=== PATIENT | female | born 1930 | race Caucasian/White ===

== ENCOUNTER 2016-09-11 09:43 | Inpatient (IN) ==
[2016-09-11 10:48] LABS: URINE MICRO REVIEW NEEDED? NO; URINE SOURCE CLEAN CATCH
[2016-09-11 10:52] LABS: BASO% 0.1 % (0.0-0.8); EOS# 0.06 X1000 (0.0-0.7); EOS% 0.4 % (0.0-10.0); HEMATOCRIT 32.4 % (37.0-47.0); IMM GRAN# 0.03 X1000 (0.0-0.04); IMM GRAN% 0.2 % (0.0-0.5); LYMPH# 0.47 X1000 (1.2-3.4); LYMPH% 3.2 % (20.5-51.1); MANUAL DIFF NEEDED? NO; MCH 29.2 PG (27-31); MCHC 30.9 g/dL (33-37); MCV 94.5 FL (81-99); MONO# 0.65 X1000 (0.11-0.59); MONO% 4.5 % (1.7-9.3); MPV 9.9 FL (7.4-10.4); NEUT% 91.6 % (42.2-75.2); PLT 306 X1000 (130-400); RBC 3.43 XMIL (4.2-5.4)
[2016-09-11 10:55] LABS: BILIRUBIN URINE NEGATIVE (NEGATIVE); BLOOD URINE MODERATE (NEGATIVE); COLOR YELLOW; GLUCOSE URINE NEGATIVE (NEGATIVE); LEUKOCYTES URINE SMALL (NEGATIVE); NITRITE URINE NEGATIVE (NEGATIVE); PH URINE 6.5; PROTEIN URINE TRACE mg/dL (NEGATIVE); SP GRAVITY URINE 1.011; TURBIDITY URINE CLEAR (CLEAR); UROBILINOGEN URINE NORMAL (NORMAL)
[2016-09-11 10:56] LABS: UR EPITHELIAL CELLS <10 /HPF (<10); URINE BACTERIA NEGATIVE /HPF; URINE CULTURE NEEDED? YES; URINE RBC TNTC /HPF (<10)
[2016-09-11 11:04] LABS: ACETAMINOPHEN < 1.2 ug/mL (10-30)
[2016-09-11 11:05] LABS: ALBUMIN 3.2 g/dL (3.5-5.0); CALCIUM 8.7 mg/dL (8.8-10.2); MAGNESIUM 1.8 mg/dL (1.5-2.7); POTASSIUM 3.8 mmol/L (3.5-5.1); TOTAL BILIRUBIN 0.38 mg/dL (0.20-1.00); TOTAL PROTEIN 6.9 g/dL (6.3-8.3)
[2016-09-11 11:22] LABS: FREE T4 1.54 ng/dL (0.93-1.70)
[2016-09-11] MEDS ORDERED: ROCEPHIN 1 GM/NS 1 GM/50 ML IVPB IV ONE (11:46)
[2016-09-11 12:39] LABS: UR AMPHETAMINES QUAL NONE DETECTED (NONE DETECT); UR BARBITUATES QUAL NONE DETECTED (NONE DETECT); UR BENZODIAZEPIN QUAL NONE DETECTED (NONE DETECT); UR CANNABINOIDS QUAL NONE DETECTED (NONE DETECT); UR COCAINE QUAL NONE DETECTED (NONE DETECT); UR METHADONE QUAL NONE DETECTED (NONE DETECT); UR OPIATES QUAL NONE DETECTED (NONE DETECT); UR OXYCODONE QUAL NONE DETECTED (NONE DETECT); UR PCP QUAL NONE DETECTED (NONE DETECT)
--- NOTE | 2016-09-11 13:49 | PROVIDER DOCUMENTATION ---
This chart was entered by Jennifer Lee Scribe, acting as scribe for Orlando León MD. HPI-Psychological Disorder - General Chief Complaint: Psych Stated Complaint: NEED EVAL Time Seen by Provider: 09/11/16 10:00 Source: patient Allergies/Adverse Reactions: Patient Allergies Allergy/AdvReac Type Severity Reaction Status Date / Time clindamycin Allergy Unknown Unknown Verified 09/11/16 10:11 epinephrine Allergy Unknown Verified 09/11/16 10:11 fentanyl Allergy Unknown Verified 09/11/16 10:11 levofloxacin [From Levaquin] Allergy Unknown Verified 09/11/16 10:11 Sulfa (Sulfonamide Allergy Unknown Verified 09/11/16 10:11 Antibiotics) tetanus immune globulin Allergy Unknown Verified 09/11/16 10:11 Home Medications: Home Medication List Medication Instructions Recorded Confirmed Last Taken Type Duloxetine [Cymbalta] 60 mg PO DAILY 05/05/12 09/11/16 1 Day Ago History Pantoprazole [Protonix] 40 mg PO DAILY@0700 #0 tablet 06/22/12 09/11/16 Rx Losartan/Hydrochlorothiazide 1 each PO QAM #30 tablet 08/25/16 09/11/16 1 Day Ago Rx [Hyzaar 50-12.5 Tablet] Beclomethasone Dipr 80 Mcg INH 1 puff INH RTBID 09/11/16 09/11/16 1 Day Ago History [Qvar 80 Microgm Inhaler] Diclofenac Sodium 75 mg PO BID 09/11/16 09/11/16 1 Day Ago History Guaifenesin [Mucinex] 600 mg PO BID 09/11/16 09/11/16 1 Day Ago History Levothyroxine 125 microgm PO DAILY 09/11/16 09/11/16 1 Day Ago History Tramadol [Ultram] 50 mg PO TID 09/11/16 09/11/16 1 Day Ago History - History of Present Illness-Psych Nature of Presenting Problem: Pt is 86 y/o F presents to the ED with confusion and hallucinations. Pt's daughter states Pt has been more agitated lately and has been looking for her who has been for 15 years. Pt denies SI or HI Onset/Duration: reports: unsure Timing: reports: still present Severity: reports: mild Situational problems related to:: reports: N/A Psychiatric Complaints: reports: agitated, confused, hallucinating. denies: angry, altered mental status, anxiety, depressed, frustrated, hostile, homicidal thoughts, impaired concentration, ingestion, injury, insomnia, irritability, paranoid, , rapid pulse, restlessness, suicidal ideation, tremor Substance Use: reports: none/never Previous psych related hospitalizations?: No Patient arrived by:: private car Similar Symptoms Previously?: Yes Recently seen or treated by another doctor?: No Review of Systems - Adult - REVIEW OF SYSTEMS - ADULT Constitutional: reports: no symptoms reported Eyes: reports: no symptoms reported Ears, Nose, Mouth & Throat: reports: no symptoms reported Cardiovascular: reports: no symptoms reported Respiratory: reports: no symptoms reported Gastrointestinal: reports: no symptoms reported Genitourinary: reports: no symptoms reported Musculoskeletal: reports: no symptoms reported Integumentary: reports: no symptoms reported Neurological: reports: no symptoms reported Psychiatric: reports: other (confusion and hallucinating). denies: anxiety, alcohol/drug dependence, depression, suicidal thoughts Endocrine: reports: no symptoms reported Hematologic/Lymphatic: reports: no symptoms reported Allergic/Immunologic: reports: no symptoms reported All Other Systems: Reviewed and Negative Past History - Adult - PAST MEDICAL HISTORY-ADULT Review of Records: reports: Nursing Assessment Review, Medications Reviewed, Social history reviewed & non-contributory. Major Childhood Illnesses: reports: denies history Cardiovascular: reports: CHF Respiratory: reports: denies history Gastrointestinal: reports: GERD Obstetrical/Gynecological: reports: denies history Genitourinary: reports: denies history Musculoskeletal: reports: arthritis Neurological: reports: dementia Endocrine/Immune: reports: denies history Other Conditions: reports: denies history - PRIOR SURGERIES/PROCEDURES Surgical/Procedure History: reports: cholecystectomy - IMMUNIZATION STATUS Childhood Immunizations: See Nurse Assessment Flu Vaccine: See Nurse Assessment - FAMILY HISTORY Family History: reviewed, not pertinent Physical Exam-Psych Focus - Physical Exam-Psych Initial Vital Signs Reviewed: Yes Appearance: appropriate appearance, appropriate insight, neat, no apparent distress, no memory impairment Neurological: alert, normal mood/affect, calm, nursing tech II-XII nml as tested Behavior/Eye Contact/Speech: cooperative, good eye contact, normal speech Thoughts/Hallucinations: normal thought pattern, visual hallucinations HENMT: normocephalic/atraumatic, moist mucous membranes, normal ENT inspection, TMs normal, pharynx normal Neck: non-tender, full range of motion, supple, normal inspection Respiratory: chest non-tender, lungs clear, normal breath sounds, no pleuratic chest pain, no respiratory distress, no accessory muscle use Cardiovascular: normal peripheral pulses, regular rate, rhythm, no edema, no gallop, no JVD, no murmur Abdominal Exam: normal bowel sounds, non tender, soft, no organomegaly, no pulsatile mass Lymphatic: no adenopathy Back Exam: normal inspection, no CVA tenderness, no vertebral tenderness Extremity: normal range of motion, non-tender, normal gait, normal inspection, no pedal edema, no calf tenderness, normal capillary refill Integumentary: normal color, normal turgor, warm/dry Progress - PLAN OF CARE/RESULTS Progress/Plan/Lab Results: Vital Signs - 8 hr 09/11/16 09:51 Temperature 98.2 F Pulse Rate 82 Respiratory Rate 18 Blood Pressure 102/56 O2 Sat by Pulse Oximetry 100 Laboratory Results - last 24 hr 09/11/16 09/11/16 09/11/16 10:20 10:20 10:20 WBC RBC Hgb Hct MCV MCH MCHC RDW Std Deviation Plt Count MPV Immature Gran % (Auto) Neut % (Auto) Lymph % (Auto) [place] % (Auto) Eos % (Auto) Baso % (Auto) Immature Gran # (Auto) Neut # (Auto) Lymph # (Auto) [place] # (Auto) Eos # (Auto) Baso # (Auto) Sodium 130 L Potassium 3.8 Chloride 93 L Carbon Dioxide 23 L Anion Gap 14 BUN 45 H Creatinine 2.0 H Estimated GFR/1.73 m2 24 BUN/Creatinine Ratio 23 Glucose 96 Calculated Osmolality 272 Calcium 8.7 L Magnesium 1.8 Total Bilirubin 0.38 AST 12 ALT 8 L Alkaline Phosphatase 112 H Total Protein 6.9 Albumin 3.2 L Globulin 3.7 Albumin/Globulin Ratio 0.9 Vitamin B12 664 Folate 28.8 TSH 3.67 Free T4 1.54 Urine Source Urine Color Urine Turbidity Urine pH Ur Specific [place] Urine Protein Ur Glucose (Stick) Ur Ketones (Stick) Urine Blood Urine Nitrite Urine Bilirubin Urobilinogen Dipstick Urine Leukocytes Urine WBC (Auto) Urine RBC (Auto) U Epithel Cells (Auto) Urine Bacteria (Auto) Salicylates Urine Opiates Screen Ur Oxycodone Screen Ur Methadone, Qual Acetaminophen Ur Barbiturates Screen Ur Phencyclidine Scrn Ur Amphetamines Screen U Benzodiazepines Scrn Urine Cocaine Screen U Cannabinoids Screen RPR 09/11/16 09/11/16 09/11/16 10:20 10:20 10:20 WBC 14.59 H RBC 3.43 L Hgb 10.0 L Hct 32.4 L MCV 94.5 MCH 29.2 MCHC 30.9 L RDW Std Deviation 14.4 Plt Count 306 MPV 9.9 Immature Gran % (Auto) 0.2 Neut % (Auto) 91.6 H Lymph % (Auto) 3.2 L [place] % (Auto) 4.5 Eos % (Auto) 0.4 Baso % (Auto) 0.1 Immature Gran # (Auto) 0.03 Neut # (Auto) 13.36 H Lymph # (Auto) 0.47 L [place] # (Auto) 0.65 H Eos # (Auto) 0.06 Baso # (Auto) 0.02 Sodium Potassium Chloride Carbon Dioxide Anion Gap BUN Creatinine Estimated GFR/1.73 m2 BUN/Creatinine Ratio Glucose Calculated Osmolality Calcium Magnesium Total Bilirubin AST ALT Alkaline Phosphatase Total Protein Albumin Globulin Albumin/Globulin Ratio Vitamin B12 Folate TSH Free T4 Urine Source Urine Color Urine Turbidity Urine pH Ur Specific [place] Urine Protein Ur Glucose (Stick) Ur Ketones (Stick) Urine Blood Urine Nitrite Urine Bilirubin Urobilinogen Dipstick Urine Leukocytes Urine WBC (Auto) Urine RBC (Auto) U Epithel Cells (Auto) Urine Bacteria (Auto) Salicylates < 3.00 L Urine Opiates Screen Ur Oxycodone Screen Ur Methadone, Qual Acetaminophen < 1.2 L Ur Barbiturates Screen Ur Phencyclidine Scrn Ur Amphetamines Screen U Benzodiazepines Scrn Urine Cocaine Screen U Cannabinoids Screen RPR NON-REACTIVE 09/11/16 09/11/16 10:35 11:02 WBC RBC Hgb Hct MCV MCH MCHC RDW Std Deviation Plt Count MPV Immature Gran % (Auto) Neut % (Auto) Lymph % (Auto) [place] % (Auto) Eos % (Auto) Baso % (Auto) Immature Gran # (Auto) Neut # (Auto) Lymph # (Auto) [place] # (Auto) Eos # (Auto) Baso # (Auto) Sodium Potassium Chloride Carbon Dioxide Anion Gap BUN Creatinine Estimated GFR/1.73 m2 BUN/Creatinine Ratio Glucose Calculated Osmolality Calcium Magnesium Total Bilirubin AST ALT Alkaline Phosphatase Total Protein Albumin Globulin Albumin/Globulin Ratio Vitamin B12 Folate TSH Free T4 Urine Source CLEAN CATCH Urine Color YELLOW Urine Turbidity CLEAR Urine pH 6.5 Ur Specific [place] 1.011 Urine Protein TRACE A Ur Glucose (Stick) NEGATIVE Ur Ketones (Stick) NEGATIVE Urine Blood MODERATE A Urine Nitrite NEGATIVE Urine Bilirubin NEGATIVE Urobilinogen Dipstick NORMAL Urine Leukocytes SMALL A Urine WBC (Auto) 10-20 A Urine RBC (Auto) TNTC A U Epithel Cells (Auto) <10 Urine Bacteria (Auto) NEGATIVE Salicylates Urine Opiates Screen NONE DETECTED Ur Oxycodone Screen NONE DETECTED Ur Methadone, Qual NONE DETECTED Acetaminophen Ur Barbiturates Screen NONE DETECTED Ur Phencyclidine Scrn NONE DETECTED Ur Amphetamines Screen NONE DETECTED U Benzodiazepines Scrn NONE DETECTED Urine Cocaine Screen NONE DETECTED U Cannabinoids Screen NONE DETECTED RPR Orders Category Date Time Status ACETAMINOPHEN [TDM] Stat Lab 09/11/16 10:20 Completed CBC WITH ELECTRONIC DIFF [HEME] Stat Lab 09/11/16 10:20 Completed COMPREHENSIVE METABOLIC PANEL [CHEM] Stat Lab 09/11/16 10:20 Completed FOLATE Stat Lab 09/11/16 10:20 Completed FREE T4 Stat Lab 09/11/16 10:20 Completed MAGNESIUM [CHEM] Stat Lab 09/11/16 10:20 Completed RPR [SERO] Stat Lab 09/11/16 10:20 Completed SALICYLATES [TDM] Stat Lab 09/11/16 10:20 Completed TSH Stat Lab 09/11/16 10:20 Completed UDS [URINE DRUG SCREEN] Stat Lab 09/11/16 11:02 Completed URINALYSIS W/POSS RFLX CULT-1 [URINALYSIS] Routine Lab 09/11/16 10:35 Completed URINE CULTURE [RM] Routine Lab 09/11/16 11:02 Received VITAMIN B12 Stat Lab 09/11/16 10:20 Completed CefTRIAXONE 1 GM/NS [Rocephin 1 gm/Ns] Med 09/11/16 11:46 Discontinued 1 gm in 50 ml IV NOW EKG [EKG] Stat Ther 09/11/16 10:14 Ordered Result Diagrams: 09/11/16 10:20 09/11/16 10:20 - REASSESSMENT Reassessment #1 Time Reassessed: 12:05 Status: unchanged ([facility] was called for Psych consult.) - CONSULTS/PCP/HOSPITALIST Notification Time Discussed: 13:48 Reason/Comments: Dr. Leal will admit Consult Disposition: Admit Departure - Departure Time of Disposition Decision: 11:50 DIAGNOSIS: UTI (urinary tract infection) Qualifiers: Urinary tract infection type: acute cystitis Hematuria presence: without hematuria Qualified Code(s): N30.00 - Acute cystitis without hematuria Altered mental status Qualifiers: Altered mental status type: transient alteration of awareness Qualified Code(s) : R40.4 - Transient alteration of awareness Dementia Qualifiers: Dementia type: Alzheimer's disease Alzheimer's disease onset: unspecified onset Dementia behavioral disturbance: with behavioral disturbance Qualified Code(s): G30.8 - Other Alzheimer's disease; F02.81 - Dementia in other diseases classified elsewhere with behavioral disturbance Disposition: ADMITTED INPATIENT 09 Certified Medical Emergency: Emergent Condition: Stable Referrals and Follow-Ups: Mitch Leal MD [Primary Care Provider] - - Critical Care Note This patient required my direct personal management.: No This chart was documented by the indicated scribe, (Jennifer Lee Scribe) and accurately reflects the services I performed and decisions made by me, Orlando León MD, as attested by the provider's signature.
--- NOTE | 2016-09-11 15:16 | HISTORY AND PHYSICAL ---
This is an 86-year-old, well known to me who presented to the emergency room on 09/11/2016. She is brought here really because she has had more confusion, crying out for her . Assisted living has been in contact with us several times a week. Concerned about her confusion. They have contacted the family almost every day with concerns. She has underlying dementia and she has delirium and is probably more prominent because she is at a new facility. Deny a history of fever or chills. She denies dysuria or gross hematuria. PAST MEDICAL HISTORY: She has had hypothyroidism, severe degenerative arthritis, peptic ulcer disease in the past. She has been treated various times for UTI with Levaquin and I am not sure all of these were symptomatic urinary tract infections. She was last admitted on 06/19/2012. PAST SURGICAL HISTORY: Status post cholecystectomy. ALLERGIES: No known drug allergies. FAMILY HISTORY: Noncontributory. SOCIAL HISTORY: Denies use of tobacco, alcohol or illicit drugs. MEDICATIONS: At the present time she is taking levothyroxine 125 mcg daily. Q-ROBBIE 80 mcg b.i.d. Diclofenac 75 mg b.i.d. Cymbalta 60 mg a day. Mucinex 600 mg b.i.d. Hyzaar 50/12.5 one a day. Protonix 40 mg a day. Tramadol 50 mg b.i.d. p.r.n. FAMILY HISTORY: Noncontributory. SOCIAL HISTORY: Negative for alcohol or tobacco. REVIEW OF SYSTEMS: No history of weight gain or loss. No fever or chills.HEENT: Unremarkable. Respiratory: No increased work of breathing or dyspnea. Cardiovascular: No chest pain or tachy palpitation. GI: Unremarkable. : Unremarkable. Musculoskeletal/Neurologic: No significant complaints. Endocrinologic/Hematologic: No significant history. PHYSICAL EXAMINATION: VITAL SIGNS: Temperature 98.2 degrees, pulse 87, respirations 15, blood pressure 96/46. HEENT: Pupils equal, round. LUNGS: Are clear in all lung johnson. CARDIOVASCULAR: Regular rhythm and rate without murmur or S3. ABDOMEN: Soft. SKIN: Warm and dry. Weight 136 pounds, height 5 feet 6 inches. RESPIRATORY: Lungs are clear in all lung johnson. Awake and alert, oriented x2. Pleasant pupils are equal, round, reactive to light and accommodation. Oral and nasal mucosa unremarkable. Conjunctivae pink. Sclerae clear. Tympanic membranes intact. NECK: Supple without adenopathy or thyromegaly. CVP less than 6 cm. ABDOMEN: Soft. SKIN: Is warm and dry. White count 20234, hematocrit 32, platelet count 306,000. Sodium 130, potassium 3.8, chloride 93, BUN 45, creatinine 2.0. Magnesium 1.8. Calculated osmolality 272. T4 is 1.54. TSH 3.67. Folate was 28. Vitamin B12 664. Albumin 3.2. Urinalysis, urine toxicology was completely negative. Urine too numerous to count red blood cells, 10-20 white blood cells. ASSESSMENT AND PLAN: 1. Underlying dementia, episodes of delirium. She looks comfortable at the present time. I believe we will try and stop the diclofenac. I will see if I can diminish the Cymbalta and see if that will make a difference and I will see if I can stop the Ultram. 2. Gross hematuria. I am going to treat her like hemorrhagic cystitis. She is apparently allergic to Levaquin so I will put her on Rocephin or ceftriaxone 1 g daily. 3. Hypothyroidism. Appears euthyroid. Check T4 and TSH. Continue levothyroxine 125 mcg daily. 4. Hypertension. We will watch her blood pressure. 5. Osteoarthritis. As far as I do not think right now, she is going to be able to go back to assisted living. She may need more comprehensive care. Discussed with family. We will get social service to help. cc: Mitch Leal MD
[2016-09-11] MEDS ORDERED: ZOFRAN IV PRN (15:43)
[2016-09-11] MEDS: NS 1,000 ML IV SCH (16:00)
[2016-09-11] MEDS ORDERED: ATIVAN IV PRN (17:22)
[2016-09-11] MEDS: HALDOL IV PRN (17:48)
[2016-09-12] MEDS: SYNTHROID PO SCH (06:05)
[2016-09-12] MEDS: NS 1,000 ML IV SCH ×2 (06:06→18:58)
[2016-09-12 06:08] LABS: MANUAL DIFF NEEDED? NO
[2016-09-12 06:12] LABS: BASO% 0.3 % (0.0-0.8); EOS# 0.17 X1000 (0.0-0.7); EOS% 2.2 % (0.0-10.0); HEMATOCRIT 32.2 % (37.0-47.0); HEMOGLOBIN 9.8 g/dL (12.0-16.0); LYMPH# 1.02 X1000 (1.2-3.4); MCH 28.4 PG (27-31); MCHC 30.4 g/dL (33-37); MCV 93.3 FL (81-99); MONO# 0.86 X1000 (0.11-0.59); MPV 10.2 FL (7.4-10.4); NEUT% 73.5 % (42.2-75.2); PLT 283 X1000 (130-400); RBC 3.45 XMIL (4.2-5.4)
[2016-09-12 06:49] LABS: ALBUMIN 2.9 g/dL (3.5-5.0); CALCIUM 8.4 mg/dL (8.8-10.2); MAGNESIUM 1.8 mg/dL (1.5-2.7); POTASSIUM 4.1 mmol/L (3.5-5.1); TOTAL BILIRUBIN 0.18 mg/dL (0.20-1.00)
[2016-09-12] MEDS: HYZAAR 50/12.5 MG PO SCH (08:26)
[2016-09-12] MEDS: ROCEPHIN 1 GM/NS 1 GM/50 ML IVPB IV SCH (11:51)
--- NOTE | 2016-09-12 12:56 | PROGRESS NOTE ---
DATE: 09/12/2016 SUBJECTIVE: Ms. Machuca says she is feeling great this morning. No complaints. She appears oriented times person, recognizes me, and she knows that she is in the hospital. She did have some confusion last night. OBJECTIVE: Vital signs: Temperature 98.2 degrees, pulse 103, respirations 17, blood pressure 80 to 97 over 37 to 48. Lungs: Clear in all lung johnson. Cardiovascular exam: Regular rhythm and rate without murmur or S3. Abdomen: Soft. Skin: Warm and dry. O2 saturations 97%. LAB: White count 7840, hematocrit 32, platelet count 283,000. Chemistry: Sodium 134, potassium 4.1, chloride 98, BUN 49, creatinine 2.0. Liver functions unremarkable. ASSESSMENT AND PLAN: 1. Underlying dementia, episodes delirium. She does appear to be better. I have cut out several of her medications, including the Cymbalta and her pain medicine. She appears comfortable at the present time. We did give her Haldol as needed. 2. History of hypothyroidism, appears to be euthyroid. 3. History of osteoarthritis, aware. We will see how we do in physical therapy. We will see how we do eating and then I do not know that she will be able to go back to assisted living. So, we will see what our options are. Should have her back on her losartan/hydrochlorothiazide, and I her taking Ativan as needed. We have given her ceftriaxone as her urine did have some sediment, and we will treat her for urinary tract infection. cc: Mitch Leal MD
[2016-09-13] MEDS: NS 1,000 ML IV SCH ×3 (04:12→20:31)
[2016-09-13] MEDS: SYNTHROID PO SCH (06:39)
[2016-09-13] MEDS: HYZAAR 50/12.5 MG PO SCH (08:12)
[2016-09-13] MEDS: ROCEPHIN 1 GM/NS 1 GM/50 ML IVPB IV SCH (12:16)
--- NOTE | 2016-09-13 16:43 | PROGRESS NOTE ---
DATE: 09/13/2016 SUBJECTIVE: Ms. Machuca was very sleepy. She had her breakfast. She had eaten a couple of bites and then fell asleep. Apparently given some Ativan last night. OBJECTIVE: Vital signs: Temperature 97.5 degrees, pulse 94, respirations 20, blood pressure 150/69. HEENT: Pupils are equal and round. Neck: CVP less than 6 cm. Lungs: Clear in all lung johnson. Cardiovascular: Regular rhythm and rate without murmur or S3. : Good urine output. ASSESSMENT AND PLAN: 1. Lethargy, underlying dementia. We have decreased all of her medications. I think this is from the Ativan they gave her last night. 2. History of hypothyroidism. Appears euthyroid. 3. Osteoarthritis. 4. In going over her orders, I think we need to markedly reduced from Ativan if they give it to her. Otherwise seems to be doing better. I am treating her with ceftriaxone. We will check a chest x-ray. The urine showed no growth. So, we need to decide on what we are going to do as far as discharge and placement. cc: Mitch Leal MD
[2016-09-13] MEDS: ATIVAN IV PRN (22:40)
[2016-09-14] MEDS: NS 1,000 ML IV SCH ×2 (04:38→17:15)
[2016-09-14] MEDS: SYNTHROID PO SCH (06:40)
[2016-09-14] MEDS: HYZAAR 50/12.5 MG PO SCH (08:49)
[2016-09-14] MEDS: ATIVAN IV PRN ×3 (10:52→21:27)
--- NOTE | 2016-09-14 17:07 | PROGRESS NOTE ---
DATE: 09/14/2016 SUBJECTIVE: Ms. Machuca is feeling better. She wants to go home. Blood pressure is fairly good, a little bit on the low side. Pulse 110, respirations 16, blood pressure, we have had some 80s and 90s systolic. She feels good. Apparently physical therapy came by. I am not sure if she was able to stand up or walk very far. OBJECTIVE: Lungs: Clear in all lung johnson. Cardiovascular: Regular rhythm and rate without murmur or S3. Abdomen: Soft. Skin: Warm and dry. ASSESSMENT AND PLAN: 1. She is having a little more cough. I am going to check a chest x-ray on her. We will check some more lab in the morning. CBC and CHEM. We checked thyroid, looks good. B12 and folate look good. 2. Review of her orders, she is taking Zofran p.r.n. but has not had much nausea. Fluids going at 85 mL an hour. She is on losartan/hydrochlorothiazide. The blood pressures look good, at times a little marginal and I think we ought to just go ahead and stop that. We will discuss with family what they want to do for discharge. Continue physical therapy. cc: Mitch Leal MD
--- NOTE | 2016-09-14 17:42 | Diag Imaging Result Document ---
PROCEDURE NAME: CHEST-PORTABLE - 09/14/2016 PORTABLE CHEST: COMPARISON: 08/25/2016. FINDINGS: There is stable cardiomegaly. There is stable elevation of the right hemidiaphragm. There is stable small left pleural effusion. There is no consolidation or pneumothorax identified. There is apparent skin fold artifact noted over the lateral left base. IMPRESSION: Stable exam compared to 08/25/2016. Cardiomegaly, elevated right hemidiaphragm, and small left pleural effusion. No indication of pneumonia.
[2016-09-14] MEDS: TESSALON PO PRN (20:39)
[2016-09-15] MEDS: NS 1,000 ML IV SCH ×3 (00:41→12:57)
[2016-09-15 05:43] LABS: MANUAL DIFF NEEDED? NO
[2016-09-15 05:44] LABS: BASO% 0.7 % (0.0-0.8); EOS# 0.26 X1000 (0.0-0.7); EOS% 3.6 % (0.0-10.0); HEMATOCRIT 33.6 % (37.0-47.0); HEMOGLOBIN 10.4 g/dL (12.0-16.0); LYMPH# 1.34 X1000 (1.2-3.4); LYMPH% 18.4 % (20.5-51.1); MCH 29.1 PG (27-31); MCV 94.1 FL (81-99); MONO# 0.73 X1000 (0.11-0.59); MPV 9.6 FL (7.4-10.4); NEUT% 67.3 % (42.2-75.2); PLT 342 X1000 (130-400); RBC 3.57 XMIL (4.2-5.4)
[2016-09-15 06:04] LABS: CALCIUM 8.8 mg/dL (8.8-10.2); MAGNESIUM 1.5 mg/dL (1.5-2.7); POTASSIUM 3.2 mmol/L (3.5-5.1); TOTAL BILIRUBIN 0.15 mg/dL (0.20-1.00); TOTAL PROTEIN 6.2 g/dL (6.3-8.3)
[2016-09-15] MEDS: SYNTHROID PO SCH (06:24)
--- NOTE | 2016-09-15 09:45 | PROGRESS NOTE ---
DATE: 09/15/2016 SUBJECTIVE: Ms. Machuca apparently had some trouble sleeping last night. She is sleeping well this evening. She does have some sundowning and some delirium in the evening. I am going to try her on some trazodone to help her sleep at 50 mg. We will try that tonight. Ativan seems to be helpful. PHYSICAL EXAMINATION: Vital Signs: Temperature 98 degrees, pulse 76, respirations 16, blood pressure 100/56. HEENT: The pupils were equal and round. Lungs. Are clear in all lung johnson. Cardiovascular Examination: Regular rhythm and rate without murmur or S3. Is and Os: Urine output over 4 L. LAB: Reviewed. White count 7300, hematocrit 33, platelet count 342,000. Chemistry: Sodium 140, potassium 3.2, chloride 107, bicarb 20, BUN 23, creatinine 1.5. Magnesium was 1.5. She also had a chest x-ray. She was having a little more cough yesterday. Chest x-ray was stable exam compared to 08/25/2016. Elevated right hemidiaphragm, small left pleural effusion. No indication of pneumonia. ASSESSMENT AND PLAN: 1. General arthritis, osteoarthritis. We will need to continue physical therapy. Try and get her out of bed and do some walking. 2. She has cognitive decline, mild dementia. She does have sundowning with some delirium. I am going to try a little bit of trazodone to help her sleep tonight and see if that with the Ativan is going to be helpful. 3. Nutrition is good. Oral intake is good. 4. Review of her court orders. I do not see any change. Family would like to get her to [facility]. See if we can get her into rehabilitation so we will try and pursue that. cc: Mitch Leal MD
[2016-09-15] MEDS: TESSALON PO PRN ×3 (12:56→21:54)
[2016-09-15] MEDS: POTASSIUM CHLORIDE 20% LIQUID PO SCH (12:57)
[2016-09-15] MEDS: DESYREL PO SCH (20:47)
[2016-09-15] MEDS: ATIVAN IV PRN (21:55)
[2016-09-16] MEDS: NS 1,000 ML IV SCH ×2 (03:17→22:10)
[2016-09-16] MEDS: POTASSIUM CHLORIDE 20% LIQUID PO SCH (10:18)
[2016-09-16] MEDS: SYNTHROID PO SCH (10:19)
[2016-09-16] MEDS: TESSALON PO PRN (10:31)
[2016-09-16] MEDS: TYLENOL PO PRN (10:52)
--- NOTE | 2016-09-16 11:48 | PROGRESS NOTE ---
DATE: 09/16/2016 SUBJECTIVE: Ms. Machuca was sleepy. She woke up, and was aroused easily. Appears comfortable. Thinks she had a little better night last night. We did try her on trazodone. OBJECTIVE: Vital signs: Temperature 97.6, pulse 100, respirations 18, blood pressure 126/59. Eyes: Pupils are equal, round. Lungs: Are clear in all lung johnson. Cardiovascular: Exam regular rhythm and rate without murmur or S3. Urine output 2000 mL. LAB: Reviewed from yesterday. Creatinine down to 1.5. It was 2.0 on 08/23. ASSESSMENT AND PLAN: 1. General arthritis, osteoarthritis. Pain appears to be under control. Continue physical therapy. Need to get her walking. 2. Cognitive decline, mild dementia with episodes of delirium and some sundowning. We tried trazodone, it seems to be helpful. 3. Nutrition is good. 4. Renal function. Creatinine came down from 2.0 to 1.5. We will check blood work again in the morning. Review of her orders. Trazodone 50 mg at bedtime, potassium 40 mEq daily. She is getting normal saline at 85 mL an hour. Synthroid 125 mcg a day, Tessalon Perles as needed. Note, we had checked a chest x-ray on 09/14 and it was stable exam. No sign of infiltrates. Plan is to try and get her to a [facility] and continue to work that. cc: Mitch Leal MD
[2016-09-16] MEDS ORDERED: LASIX IV ONE (15:41)
[2016-09-16] MEDS ORDERED: DUONEB (A & A) INH ONE ×2 (15:41→18:58)
--- NOTE | 2016-09-16 17:26 | Diag Imaging Result Document ---
PROCEDURE NAME: CHEST-PORTABLE - 09/16/2016 PORTABLE CHEST: COMPARISON: Compared to 09/14/2016. FINDINGS: The right hemidiaphragm is elevated. The heart is mildly prominent. There is vascular distention. No consolidation. No pleural effusions identified. IMPRESSION: Worsening pulmonary edema.
[2016-09-16] MEDS: DESYREL PO SCH (21:04)
[2016-09-16] MEDS: ATIVAN IV PRN (21:04)
[2016-09-16] MEDS: DUONEB (A & A) INH PRN (23:05)
[2016-09-17] MEDS: DESYREL PO SCH ×2 (01:00→20:19)
[2016-09-17] MEDS: DUONEB (A & A) INH PRN ×5 (03:30→23:30)
[2016-09-17] MEDS: SYNTHROID PO SCH (06:07)
[2016-09-17 07:05] LABS: CALCIUM 9.1 mg/dL (8.8-10.2)
--- NOTE | 2016-09-17 07:18 | PROGRESS NOTE ---
DATE: 09/17/2016 SUBJECTIVE: Ms. Machuca states she is comfortable. She did get some sleep last night. Easy to arouse. Appeared to be oriented to person and place this morning. OBJECTIVE: Temperature 97.8 degrees, pulse 84, respirations 10, blood pressure 140/69. Her ranges of blood pressure been between 100 to 145/56 to 76. Lungs are clear in all lung johnson anterolateral. Cardiovascular: Regular rhythm and rate without murmur or S3. Abdomen is soft. Skin is warm and dry. Good urine output. LABORATORY DATA: Lab reviewed from 09/15/2016. We did a chest x-ray yesterday. There was some worsening pulmonary edema, so, we gave her some Lasix. I will probably give her Lasix daily for a little bit so we can dry her lungs up some. Watching her renal function closely. ASSESSMENT AND PLAN: 1. General arthritis/osteoarthritis. Continue physical therapy. 2. Cognitive decline with mild dementia. Episodes of delirium at times. This seems to be better. We tried some trazodone at night. This seems to be helpful. 3. Nutrition is good. 4. Mild renal insufficiency. Probably has chronic kidney disease, stage 2. 5. Some pulmonary venous hypertension. I am going to give her some more Lasix this morning. We will check electrolytes again. I would like to see if we could get her to a [facility] tomorrow. cc: Mitch Leal MD
[2016-09-17] MEDS ORDERED: CALMOSEPTINE OINTMENT TOP PRN (07:21)
[2016-09-17] MEDS: POTASSIUM CHLORIDE 20% LIQUID PO SCH (09:13)
[2016-09-17] MEDS: TYLENOL PO PRN (13:25)
[2016-09-17] MEDS: ATIVAN IV PRN ×2 (18:26→23:14)
[2016-09-18] MEDS: HALDOL IV PRN (05:30)
[2016-09-18] MEDS: SYNTHROID PO SCH (06:13)
--- NOTE | 2016-09-18 06:24 | Diag Imaging Result Document ---
PROCEDURE NAME: CHEST-PORTABLE - 09/18/2016 SEMIUPRIGHT AP PORTABLE CHEST: COMPARISON: 09/16/2016. FINDINGS: The right hemidiaphragm is elevated. The heart is enlarged. There is mild central vascular prominence. There is a small left effusion. The overall appearance of the chest is similar to that of the prior exam. IMPRESSION: Stable chest.
[2016-09-18] MEDS ORDERED: LASIX IV ONE (09:13)
--- NOTE | 2016-09-18 09:45 | PROGRESS NOTE ---
DATE: 09/18/2016 SUBJECTIVE: Ms. Machuca is sleeping. She does not feel real good. States her breathing is better, though. OBJECTIVE: Vital Signs: Temp 98.2 degrees, afebrile, pulse 90, respirations 18, blood pressure 91/66. HEENT: Pupils are equal. CVP appears to be less than 8 cm water pressure from angle of Bharat. Her urine output is about 1400 mL. DIAGNOSTIC DATA: Review of her CBC from the 2nd is unremarkable. Chemistries from yesterday, renal function is improving. Creatinine 1.4. It was 2.0 when she presented. Her magnesium was 1.5. Chest x-ray from this morning, stable chest. Right hemidiaphragm elevated. Heart is enlarged with mild central vascular prominence. Note, I am going to get an echocardiogram. Her EKG appears to be right bundle-branch block with first-degree AV block, otherwise unremarkable. No ST-segment changes. ASSESSMENT AND PLAN: 1. General osteoarthritis and weakness. Continue physical therapy, trying to get her into a long term. 2. Cognitive decline, mild dementia with times of delirium and ing. We have started trazodone at night. This seems to be helpful. 3. Nutrition good. 4. Mild renal insufficiency. Overlying probably some chronic kidney disease stage 2. Renal function appears to be improving. 5. Pulmonary venous hypertension. I will check an echocardiogram as family has asked that Cardiology get involved, as she has been told she has congestive heart failure. 6. Review of her orders: I will give her some more Lasix today. Fluids have been turned down. I think she has an appointment as an outpatient see Dr. Jim. We will ask Dr. Juan F Daniels if he would see her today and evaluate and then lastly hypothyroidism appears to be euthyroid based on her TSH. We will check a T4 and TSH though as well. cc: Mitch Leal MD
--- NOTE | 2016-09-18 10:40 | CONSULTATION ---
DATE OF CONSULTATION: 09/18/2016 INDICATIONS: Shortness of breath and confusion. HISTORY OF PRESENT ILLNESS: Ms. Machuca is an 86-year-old white female with a history of significant dementia who presented for evaluation from an assisted living facility with acute confusion. Apparently, over the last couple of weeks or so, the patient has had worsening confusion and has actually been somewhat combative lately. She was brought in secondary to this. Presently, the patient is not able to provide any history, as she was given 4 mg of Ativan around 4-1/2 to 5 hours prior to my evaluation. The patient's daughter is present in the room. She denies any issues with orthopnea lately, no lower extremity edema. She was told that she has CHF, but I do not see any formal evaluations with stress tests or ultrasounds. PAST MEDICAL HISTORY: 1. Significant for hypothyroidism. 2. Osteoarthritis. 3. Peptic ulcer disease. 4. Frequent UTIs. 5. Significant dementia. 6. Chronic kidney disease. SOCIAL HISTORY: She apparently is a former resident of an assisted living facility. No current alcohol or tobacco. FAMILY HISTORY: Significant for hypertension. REVIEW OF SYSTEMS: A 10-system review of systems is unable to be obtained secondary to the patient's sedation from recent Haldol administration. PHYSICAL EXAMINATION: Vital Signs: On physical examination, she is afebrile. Heart rate of 90, blood pressure 91/66. General: She is in no acute distress. HEENT: Oropharynx is moist. Poor dentition. Eye examination is pink conjunctivae. White sclerae. Neck: Examination shows no obvious thyromegaly or thyroid tenderness. Cardiovascular: She is in a regular rate and rhythm. She has no obvious murmurs. There is no S3. She has no lower extremity edema. Chest: Exam sounds clear bilaterally. She has no increased work of breathing. She is not cooperative with the exam. Abdomen: Soft, nontender, nondistended. She has no obvious organomegaly. Skin: Warm and dry throughout. Neurologic/Psychiatric: Not able to be assessed secondary to the patient's profound sedation. PERTINENT DATA: Her chest x-ray shows a right hemidiaphragm that is elevated, cardiomegaly, mild central vascular prominence with a small left-sided effusion. Laboratory data shows a sodium of 142, potassium 4, BUN 18, creatinine 1.4. Yesterday her white count was 7.3 with hematocrit 33.6 and platelet count of 342,000. She had a proBNP on the that was 16,511. She has had none checked here. She apparently presented on the , and on the her creatinine was 2; today it is 2.4 ASSESSMENT: Dementia with a significant level of confusion lately, which is likely delirium superimposed on severe underlying dementia. PLAN: We will check an echocardiogram. Presently I do not have significant historical level of evidence or objective evidence to suggest that the patient has heart failure. She did have an elevated proBNP on a previous presentation to the ER, but this was in the setting of what appeared to be acute kidney insufficiency. I would continue on current management. cc: MD Mitch Zaldivar MD
[2016-09-18] MEDS: NS 1,000 ML IV SCH ×2 (11:12→18:04)
[2016-09-18] MEDS: PRINIVIL PO SCH (11:59)
[2016-09-18] MEDS: POTASSIUM CHLORIDE 20% LIQUID PO SCH (11:59)
[2016-09-18] MEDS: DUONEB (A & A) INH PRN ×2 (16:17→19:34)
[2016-09-18] MEDS: ATIVAN IV PRN (19:57)
[2016-09-18] MEDS: DESYREL PO SCH (20:00)
[2016-09-19 06:06] LABS: CALCIUM 8.8 mg/dL (8.8-10.2); MAGNESIUM 1.5 mg/dL (1.5-2.7); POTASSIUM 4.4 mmol/L (3.5-5.1)
[2016-09-19] MEDS: SYNTHROID PO SCH (06:16)
[2016-09-19] MEDS: DUONEB (A & A) INH PRN ×4 (07:48→23:11)
--- NOTE | 2016-09-19 09:49 | PROGRESS NOTE ---
DATE: 09/19/2016 SUBJECTIVE: Ms. Machuca was sleeping, resting comfortably. She was easy to arouse, but she said she is sleepy this morning. OBJECTIVE: Vital Signs: Temperature 98.2 degrees, pulse 96, respirations 15, blood pressure 130/75. HEENT: Pupils are equal, round. Lungs: The lungs are clear in all lung johnson. Cardiovascular: Regular rhythm and rate without murmur or S3. Abdomen: Soft. Skin: Warm and dry. Urine Output: 1376. LABORATORY DATA: Chemistries from this morning, sodium 141, potassium 4.4, chloride 110, BUN 20, creatinine 1.5. ASSESSMENT: 1. She still has a significant level of confusion and some delirium. The delirium is superimposed on some mild dementia. 2. Osteoarthritis. 3. General weakness and deconditioning. 4. Chronic kidney disease. Creatinine about, I think, baseline, which is about 1.4 to 1.5. 5. History of peptic ulcer disease. PLAN: Echocardiogram will be reviewed. The plan is to try and get her to rehab on Wednesday. Her electrolytes and volume status look good. Looking at orders, I do want to look at an echocardiogram. Cardiology consult, I appreciate Dr. Daniels's help. We will give her some more Lasix this morning. cc: Mitch Leal MD
[2016-09-19] MEDS: PRINIVIL PO SCH (10:41)
[2016-09-19] MEDS: LASIX IV SCH (10:41)
[2016-09-19] MEDS: POTASSIUM CHLORIDE 20% LIQUID PO SCH (10:41)
--- NOTE | 2016-09-19 16:39 | ECHO REPORT ---
ORDER DATE: 09/18/2016 INTERPRETING PHYSICIAN: Dr. Tho Vallejo ECHOCARDIOGRAPHIC MEASUREMENTS: Interventricular septum: 1.4 cm. Left ventricular posterior wall: 1.6 cm. Diastolic diameter: 3.0 cm. Left atrium: 4.4 cm. Aortic root: 3.0 cm. SUMMARY OF THE 2-DIMENSIONAL IMAGIN. There is severe mitral annular calcification with thickened and restricted movement of the mitral valve leaflets. Tricuspid valve was normal. 2. Aortic valve leaflets are calcified. Trileaflet pulmonic valve was normal. 3. Left atrial enlargement. 4. Normal left ventricular cavity size. Concentric left ventricular hypertrophy. Estimated ejection fraction of 60-65%. 5. Doppler studies revealed peak velocity across the aortic valve was 4.3 m/sec with a peak gradient of 74 mmHg, mean gradient of 44 mmHg. Aortic valve area a calculated at 0.8 square cm. There is severe aortic stenosis. 6. Peak inflow velocity across the mitral valve was 2.4, with a mean gradient of 12 mmHg. There is a restricted mitral valve leaflet motion with at least moderate mitral stenosis associated with mild mitral regurgitation. 7. There is moderate tricuspid regurgitation. Peak velocity across the tricuspid valve was 4 m/sec. Pulmonary artery systolic pressure of 74 mmHg. There is severe pulmonary arterial hypertension. 8. There is trivial pulmonary regurgitation. 9. There is no pericardial effusion or obvious intracardiac mass or thrombus seen. cc: MD Juan F Marroquin MD Allen J. Schmidt, MD
[2016-09-19] MEDS: DESYREL PO SCH (21:53)
[2016-09-19] MEDS: ATIVAN IV PRN (21:56)
[2016-09-19] MEDS: NS 1,000 ML IV SCH (21:57)
[2016-09-20] MEDS: NS 1,000 ML IV SCH ×2 (06:22→15:41)
[2016-09-20] MEDS: SYNTHROID PO SCH (06:23)
[2016-09-20] MEDS: DUONEB (A & A) INH PRN ×3 (07:34→15:49)
[2016-09-20] MEDS: PRINIVIL PO SCH (09:31)
[2016-09-20] MEDS: POTASSIUM CHLORIDE 20% LIQUID PO SCH (09:32)
[2016-09-20] MEDS ORDERED: ANTIVERT PO PRN (10:33)
[2016-09-20] MEDS ORDERED: LASIX PO ONE (12:46)
[2016-09-20] MEDS: LASIX IV SCH (15:41)
[2016-09-20] MEDS: ATIVAN IV PRN (19:59)
[2016-09-20] MEDS: DESYREL PO SCH (22:38)
[2016-09-20] MEDS: HALDOL IV PRN (22:38)
[2016-09-21] MEDS: ATIVAN IV PRN (03:55)
[2016-09-21] MEDS: SYNTHROID PO SCH (06:24)
[2016-09-21] MEDS: DUONEB (A & A) INH PRN ×4 (07:39→22:46)
--- NOTE | 2016-09-21 09:37 | PROGRESS NOTE ---
DATE: 09/21/2016 SUBJECTIVE: Ms. Machuca was sleeping, easy to arouse. She is sleepy. Denies any pain. No trouble with breathing. No shortness of breath. PHYSICAL EXAMINATION: Vital Signs: Afebrile, temperature 97.9 degrees, pulse 86, respirations 16, blood pressure 121/62. Neck: No distended neck veins. Lungs: Clear in all lung johnson anterolateral. Cardiovascular Examination: Regular rhythm and rate without murmur or S3. Abdomen: Soft. Skin: Warm and dry. Is and Os: Good urine output. LABORATORY DATA: Lab reviewed. Sodium 141, potassium 4.4, chloride 110, serum creatinine is 1.5, with a BUN of 20. ASSESSMENT AND PLAN: 1. She does have severe aortic stenosis and she may have an element of mitral stenosis as well. Blood pressure looks good. I have diuresed her a little bit. 2. Chronic kidney disease, acute on chronic. Creatinine was 2 when she presented. It is down to 1.5 and I suspect this is her baseline. 3. General weakness, deconditioning. Continue physical therapy. 4. Cognitive decline, mild dementia with some delirium which has improved. 5. Meniere's disease. She has complained of a little bit of vertigo. 6. I have reviewed her orders. Continue the trazodone 25 mg at bedtime. I am going to give her some more Lasix. She gets every morning 40 mg intravenous every morning, Synthroid 125 mcg a day, Prinivil 5 mg a day, potassium chloride 40 mEq daily. She is ready to go to rehabilitation. She will need custodial placement. cc: Mitch Leal MD
--- NOTE | 2016-09-21 09:52 | PROGRESS NOTE ---
DATE: 09/20/2016 SUBJECTIVE: Note, she was sleepy but easy to arouse. She was asking when she could go home. She did complain of some vertigo. She does have Meniere's. I told her that I would give her some Antivert. PHYSICAL EXAMINATION: Vital Signs: Temperature 97.8 degrees, pulse 80, respirations 16, blood pressure 120/62. Lungs: Clear in all lung johnson. Cardiovascular Examination: Regular rhythm and rate without murmur or S3. Abdomen: Soft. Skin: Warm and dry. DIAGNOSTIC DATA: I reviewed the echocardiogram. ASSESSMENT AND PLAN: I have being given her Lasix every morning. She has severe mitral annular calcification and thickened and restricted movement of the mitral valve leaflets. She has aortic stenosis which appears to be severe and her peak gradient is about 74 mmHg. Peak velocity across the aortic valve was 4.3 m/sec. She has a moderate tricuspid regurgitation. Pulmonary systolic pressure is 74 mmHg. The patient is breathing well. She is pretty puny. She is eating fairly well. The confusion is less. Still episodes of delirium and confusion though with underlying dementia. Continue present therapy. Looking for rehab alf. cc: Mitch Leal MD
[2016-09-21] MEDS: PRINIVIL PO SCH (10:06)
[2016-09-21] MEDS: POTASSIUM CHLORIDE 20% LIQUID PO SCH (10:06)
[2016-09-21] MEDS: LASIX IV SCH (10:06)
--- NOTE | 2016-09-21 11:30 | PROGRESS NOTE ---
DATE: 09/21/2016 SUBJECTIVE: Ms. Machuca is doing well today. She is not participating much in the history. She got a dose of Haldol last night at 10:40 and Ativan this morning at 3:55. She is fairly somnolent in the room, not participating in much of the history. OBJECTIVE: Vital signs: She is afebrile. Heart rate of 86, blood pressure 121/62. General: She is in no acute distress. Cardiovascular: She is in a regular rate and rhythm. There is a 2/6 systolic murmur, best heard at the right upper sternal border. No lower extremity edema. Chest: Her chest exam sounds clear to auscultation bilaterally. She has no increased work of breathing. Abdomen: Soft, nontender. PERTINENT DATA: Her echo shows an EF 60 to 65%. She appears to have severe aortic stenosis with a valve area calculated at 0.8 and a mean gradient of 44. She also appears to have some degree of mitral stenosis as well, possibly severe, with a mean gradient of 12 and a pulmonary pressure of 74. Laboratory data today shows a sodium of 141, potassium is 4.4, BUN is 20, creatinine is 1.5. ASSESSMENT: 1. Severe aortic stenosis with possibly severe mitral stenosis. 2. Some level of dementia. PLAN: At this point I am unclear of the patient's baseline level of cognitive function. This will have to be determined initially prior to determining any sort of possibility at potentially intervening on the aortic valve. Presently, she seems to be euvolemic as she is lying in bed without any complaints. No shortness of breath. No orthopnea. I would continue with current medications as she seems to be doing well. cc: MD Mitch Zaldivar MD
[2016-09-21] MEDS: DESYREL PO SCH (20:04)
[2016-09-22] MEDS: ATIVAN IV PRN (01:39)
[2016-09-22 05:08] VITALS: BP 110/51
[2016-09-22] MEDS: SYNTHROID PO SCH (06:07)
[2016-09-22 06:29] LABS: CALCIUM 9.1 mg/dL (8.8-10.2); MAGNESIUM 1.6 mg/dL (1.5-2.7); POTASSIUM 4.5 mmol/L (3.5-5.1)
[2016-09-22] MEDS ORDERED: LASIX PO SCH (09:45)
[2016-09-22] MEDS: POTASSIUM CHLORIDE 20% LIQUID PO SCH (09:55)
[2016-09-22] MEDS: PRINIVIL PO SCH (09:56)
--- NOTE | 2016-09-22 11:56 | DISCHARGE SUMMARY ---
ADMISSION DATE: 09/11/2016 DISCHARGE DATE: HOSPITAL COURSE: This 86-year-old was brought here because she had more confusion, crying out for her . Assisted Living did not feel like they could take care of that concern and so presented to the emergency room. The confusion improved. We did change the medications around. She does have some underlying cognitive decline with mild dementia. She does still have episodes of some delirium and especially in the evening, and it seemed to improve those steadily. She was very cooperative, and we began physical therapy. We did ask Cardiology to see her. She does have some pulmonary venous hypertension. Echocardiogram suggests severe aortic stenosis. Possibly at least [id number] mitral stenosis. Her pulmonary arterial hypertension: Normal left ventricular function. She was eating fairly well. Estimated ejection fraction left ventricle was 60% to 65%. Family requested that she go to rehab and feels she probably will end up needing to go to the [facility]. We would benefit from rehab and from more [place]. They cannot go home. They do not have the means or ability to do this. She cannot go back to assisted living. DISCHARGE MEDICATIONS: 1. Continue Tessalon Perles p.r.n. 2. Lasix 40 mg p.o. daily q.a.m. 3. Synthroid 125 mcg daily. 4. Prinivil 5 mg a day. 5. Antivert 12.5 t.i.d. p.r.n.. 6. Potassium chloride 40 mEq daily. We will cut that down to 20 mg daily and trazodone 25 mg at bedtime, breathing treatments as needed. Continue physical therapy. cc: Mitch Leal MD
[2016-09-22] MEDS: DUONEB (A & A) INH PRN (11:58)
--- NOTE | 2016-09-22 12:37 | Diag Imaging Result Document ---
PROCEDURE NAME: CHEST-PORTABLE - 09/22/2016 SINGLE FRONTAL RADIOGRAPH OF THE CHEST: COMPARISON: 09/18/2016. FINDINGS: There is suggestion of a small left effusion that appears to have increased in size during the interval. There is still mild central vascular prominence indicating mild pulmonary venous congestion. It is similar to the previous study. No other new consolidations are appreciated. Cardiac silhouette is stable. IMPRESSION: Suggestion of an increase in size of the small left effusion. Essentially stable, otherwise.
== END 2016-09-22 13:36 ==
LOC: ED 09:43 → 4N 15:12
PROVIDERS: ADMIT Emergency Medicine; ATTEND Emergency Medicine

== ENCOUNTER 2016-10-01 13:55 | Inpatient (IN) ==
[2016-10-01] MEDS ORDERED: NS 1,000 ML IV ONE ×2 (14:30→21:05)
[2016-10-01] MEDS ORDERED: LASIX IV ONE (14:32)
[2016-10-01 15:16] LABS: URINE SOURCE CATH
--- NOTE | 2016-10-01 15:16 | Diag Imaging Result Doc PS360 ---
EXAM: CHEST-1 VIEW HISTORY: chf COMPARISON: 09/22/2016 FINDINGS: Heart size appears upper normal. There is stable mild elevation right hemidiaphragm. There is stable mild prominence of central vascular markings. There is no dense consolidation, substantial pleural effusion, or pneumothorax identified. IMPRESSION: Stable elevation of right hemidiaphragm and prominence of central vascular markings. No other evidence of acute disease. Electronically signed by Steve Quinn 10/01/2016 3:14 PM
[2016-10-01 15:28] LABS: BILIRUBIN URINE NEGATIVE (NEGATIVE); BLOOD URINE SMALL (NEGATIVE); COLOR YELLOW; GLUCOSE URINE NEGATIVE (NEGATIVE); LEUKOCYTES URINE SMALL (NEGATIVE); NITRITE URINE NEGATIVE (NEGATIVE); PH URINE 5.5; PROTEIN URINE TRACE mg/dL (NEGATIVE); SP GRAVITY URINE 1.013; TURBIDITY URINE CLEAR (CLEAR); UROBILINOGEN URINE NORMAL (NORMAL)
[2016-10-01 15:29] LABS: URINE MICRO REVIEW NEEDED? YES
[2016-10-01 15:45] LABS: ALBUMIN 2.7 g/dL (3.5-5.0); CALCIUM 8.3 mg/dL (8.8-10.2); POTASSIUM 5.8 mmol/L (3.5-5.1); TOTAL BILIRUBIN 0.16 mg/dL (0.20-1.00); TOTAL PROTEIN 5.9 g/dL (6.3-8.3)
[2016-10-01 15:45] LABS: UR EPITHELIAL CELLS <10 /HPF (<10); URINE BACTERIA NEGATIVE /HPF; URINE CULTURE NEEDED? YES; URINE RBC <10 /HPF (<10)
[2016-10-01 15:47] LABS: BASO% 0.1 % (0.0-0.8); EOS# 0.04 X1000 (0.0-0.7); EOS% 0.1 % (0.0-10.0); HEMATOCRIT 30.3 % (37.0-47.0); HEMOGLOBIN 9.7 g/dL (12.0-16.0); IMM GRAN# 0.13 X1000 (0.0-0.04); IMM GRAN% 0.4 % (0.0-0.5); LYMPH# 0.67 X1000 (1.2-3.4); MANUAL DIFF NEEDED? YES; MCH 28.4 PG (27-31); MCV 88.6 FL (81-99); MONO# 1.51 X1000 (0.11-0.59); MONO% 4.6 % (1.7-9.3); NEUT% 92.8 % (42.2-75.2); PLT 429 X1000 (130-400); RBC 3.42 XMIL (4.2-5.4)
[2016-10-01 16:05] LABS: BANDS 8 % (0-1); LYMPHS 2 % (21-51); MONO 3 % (1-9)
[2016-10-01 16:16] LABS: URINE CASTS NONE SEEN; URINE CRYSTALS NONE SEEN; URINE SMALL ROUND CELLS RENAL PRESENT
--- NOTE | 2016-10-01 18:30 | PROVIDER DOCUMENTATION ---
This chart was entered by Ayla Barajas Scribe, acting as scribe for Sandeep Sorto MD. HPI-Cardiac General - General Chief Complaint: Abnormal Lab[s] Stated Complaint: ABNORMAL LABS Time Seen by Provider: 10/01/16 14:10 Source: EMS, [facility] records Unable to obtain history due to:: altered Allergies/Adverse Reactions: Patient Allergies Allergy/AdvReac Type Severity Reaction Status Date / Time clindamycin Allergy Unknown Unknown Verified 10/01/16 14:26 epinephrine Allergy Unknown Verified 10/01/16 14:26 fentanyl Allergy Unknown Verified 10/01/16 14:26 levofloxacin [From Levaquin] Allergy Unknown Verified 10/01/16 14:26 Sulfa (Sulfonamide Allergy Unknown Verified 10/01/16 14:26 Antibiotics) tetanus immune globulin Allergy Unknown Verified 10/01/16 14:26 Home Medications: Home Medication List Medication Instructions Recorded Confirmed Last Taken Type Beclomethasone Dipr 80 Mcg INH 1 puff INH RTBID 09/11/16 10/01/16 10/01/16 History [Qvar 80 Microgm Inhaler] Levothyroxine 125 microgm PO DAILY 09/11/16 10/01/16 10/01/16 History Acetaminophen [Tylenol] 650 mg PO Q6H PRN PRN #0 tablet 09/22/16 10/01/16 Rx Albuterol 2.5MG/Ipratrop 0.5MG 3 ml INH Q4H PRN PRN #0 neb 09/22/16 10/01/16 Rx [Duoneb (A & A)] Benzonatate [Tessalon] 100 mg PO TID PRN PRN #0 capsule 09/22/16 10/01/16 Rx Furosemide [Lasix] 40 mg PO DAILY vial 09/22/16 10/01/16 10/01/16 Rx Meclizine [Antivert] 12.5 mg PO TID PRN PRN #0 tablet 09/22/16 10/01/16 Rx Menthol/Zinc Oxide Ointment 1 gm TOP PRN PRN #0 tube 09/22/16 10/01/16 10/01/16 Rx [Calmoseptine Ointment] Trazodone [Desyrel] 25 mg PO QHS #30 tablet 09/22/16 10/01/16 10/01/16 Rx Pantoprazole [Protonix] 40 mg PO DAILY@0700 10/01/16 10/01/16 10/01/16 History Potassium Chloride 40 meq PO DAILY 10/01/16 10/01/16 10/01/16 History - History of Present Illness-Cardiac Nature of Presenting Problem: 86 yo F is [facility] by EMS with cc of elevated potassium. Pt has hx of dementia and is not able to provide HPI or ROS. EMS and [facility]iary records were used. Onset/Duration: unsure Timing: still present Context/Activities at Onset: reports: none Review of Systems - Adult - REVIEW OF SYSTEMS - ADULT ROS:: limited per condition Constitutional: reports: no symptoms reported. denies: chills, fever Eyes: reports: no symptoms reported. denies: discharge, redness Ears, Nose, Mouth & Throat: reports: no symptoms reported. denies: ear discharge, throat swelling Cardiovascular: reports: other (hyperkalemia) Respiratory: reports: no symptoms reported. denies: cough, shortness of breath Gastrointestinal: reports: no symptoms reported. denies: hematemesis, rectal bleeding Genitourinary: reports: no symptoms reported. denies: discharge, hematuria Musculoskeletal: reports: no symptoms reported. denies: muscle weakness, neck pain Integumentary: reports: no symptoms reported. denies: nail changes, rash Neurological: reports: no symptoms reported. denies: slurred speech, syncope Psychiatric: reports: no symptoms reported. denies: anxiety, depression Endocrine: reports: no symptoms reported. denies: cold intolerance, heat intolerance Hematologic/Lymphatic: reports: no symptoms reported. denies: blood clots, low blood count Allergic/Immunologic: reports: no symptoms reported. denies: allergic reactions , eczema All Other Systems: Reviewed and Negative Past History - Adult - PAST MEDICAL HISTORY-ADULT Review of Records: reports: Old Records Reviewed, Nursing Assessment Review, Medications Reviewed Major Childhood Illnesses: reports: denies history Cardiovascular: reports: CHF Gastrointestinal: reports: GERD Genitourinary: reports: denies history Musculoskeletal: reports: arthritis Endocrine/Immune: reports: denies history - PRIOR SURGERIES/PROCEDURES Surgical/Procedure History: reports: cholecystectomy - IMMUNIZATION STATUS Childhood Immunizations: See Nurse Assessment Flu Vaccine: See Nurse Assessment - FAMILY HISTORY Family History: reviewed, not pertinent Physical Exam-General - PHYSICAL EXAM-ADULT Exam Limited by: dementia Initial Vital Signs Reviewed: Yes - CONSTITUTIONAL General Appearance: other (Pt has dementia) - EYES Eyes: PERRL/EOMI, pink conjunctivae - HEAD, EARS, NOSE, MOUTH & THROAT HENMT: normocephalic/atraumatic, moist mucous membranes - NECK Neck: non-tender, full range of motion, supple - RESPIRATORY Respiratory: chest non-tender, lungs clear, normal breath sounds - CARDIOVASCULAR Cardiovascular: tachycardia - GASTROINTESTINAL (ABDOMEN) Abdominal Exam: normal bowel sounds, non tender, soft - LYMPHATIC Lymphatic: no adenopathy - MUSCULOSKELETAL Back Exam: normal inspection Extremity: non-tender - SKIN Integumentary: normal color, normal turgor - NEUROLOGIC Neurologic: other (No noted deviation from baseline). negative: facial droop, focal weakness, motor weakness - PSYCHIATRIC Psych/Mental Status: disoriented x 3 (Typical for pt) Progress - PLAN OF CARE/RESULTS Progress/Plan/Lab Results: Vital Signs - 8 hr 10/01/16 14:13 10/01/16 15:32 10/01/16 16:32 Temperature 98.2 F Pulse Rate 115 H 104 H 103 H Respiratory Rate 16 20 38 H Blood Pressure 90/46 98/49 119/59 O2 Sat by Pulse Oximetry 99 99 99 10/01/16 18:00 Temperature Pulse Rate 109 H Respiratory Rate 28 H Blood Pressure 114/79 O2 Sat by Pulse Oximetry 93 L Laboratory Results - last 24 hr 10/01/16 10/01/16 10/01/16 14:04 14:45 14:45 WBC 32.79 H RBC 3.42 L Hgb 9.7 L Hct 30.3 L MCV 88.6 MCH 28.4 MCHC 32.0 L RDW Std Deviation 14.3 Plt Count 429 H MPV 11.0 H Immature Gran % (Auto) 0.4 Neut % (Auto) 92.8 H Lymph % (Auto) 2.0 L [place] % (Auto) 4.6 Eos % (Auto) 0.1 Baso % (Auto) 0.1 Immature Gran # (Auto) 0.13 H Neut # (Auto) 30.41 H Lymph # (Auto) 0.67 L [place] # (Auto) 1.51 H Eos # (Auto) 0.04 Baso # (Auto) 0.03 Segmented Neutrophils 86 H Band Neutrophils 8 H Lymphocytes 2 L Monocytes 3 Pathologist Review Atypical Lymphocytes 1.0 Sodium 121 L Potassium 5.8 H Chloride 90 L Carbon Dioxide 18 L Anion Gap 13 BUN 94 H Creatinine 3.1 H Estimated GFR/1.73 m2 14 BUN/Creatinine Ratio 30 Glucose 111 H Calculated Osmolality 274 Calcium 8.3 L Total Bilirubin 0.16 L AST 19 ALT 17 Alkaline Phosphatase 116 H Hdg-E-Ehqrybzbnse Pept Total Protein 5.9 L Albumin 2.7 L Globulin 3.2 Albumin/Globulin Ratio 0.8 Plasma Lactate Urine Source CATH Urine Color YELLOW Urine Turbidity CLEAR Urine pH 5.5 Ur Specific [place] 1.013 Urine Protein TRACE A Ur Glucose (Stick) NEGATIVE Ur Ketones (Stick) NEGATIVE Urine Blood SMALL A Urine Nitrite NEGATIVE Urine Bilirubin NEGATIVE Urobilinogen Dipstick NORMAL Urine Leukocytes SMALL A Urine WBC (Auto) 10-20 A Urine RBC (Auto) <10 U Epithel Cells (Auto) <10 Urine Bacteria (Auto) NEGATIVE Urine Crystals NONE SEEN Small Round Cells RENAL PRESENT Urine Casts NONE SEEN Urine Yeast-like Cells NONE SEEN 10/01/16 10/01/16 14:45 16:40 WBC RBC Hgb Hct MCV MCH MCHC RDW Std Deviation Plt Count MPV Immature Gran % (Auto) Neut % (Auto) Lymph % (Auto) [place] % (Auto) Eos % (Auto) Baso % (Auto) Immature Gran # (Auto) Neut # (Auto) Lymph # (Auto) [place] # (Auto) Eos # (Auto) Baso # (Auto) Segmented Neutrophils Band Neutrophils Lymphocytes Monocytes Pathologist Review Atypical Lymphocytes Sodium Potassium Chloride Carbon Dioxide Anion Gap BUN Creatinine Estimated GFR/1.73 m2 BUN/Creatinine Ratio Glucose Calculated Osmolality Calcium Total Bilirubin AST ALT Alkaline Phosphatase Ydg-N-Gqdcqvknoki Pept > 21284 H Total Protein Albumin Globulin Albumin/Globulin Ratio Plasma Lactate 1.2 Urine Source Urine Color Urine Turbidity Urine pH Ur Specific [place] Urine Protein Ur Glucose (Stick) Ur Ketones (Stick) Urine Blood Urine Nitrite Urine Bilirubin Urobilinogen Dipstick Urine Leukocytes Urine WBC (Auto) Urine RBC (Auto) U Epithel Cells (Auto) Urine Bacteria (Auto) Urine Crystals Small Round Cells Urine Casts Urine Yeast-like Cells Orders Category Date Time Status Zacarias Cath Insertion ORDERED Care 10/01/16 15:33 Active cxr [CHEST-1 VIEW] [RAD] Stat Exams 10/01/16 14:37 Completed BLOOD CULTURE [BLDCUL] Stat Lab 10/01/16 16:45 Received CBC WITH ELECTRONIC DIFF [HEME] Stat Lab 10/01/16 14:45 Completed CMP [COMPREHENSIVE METABOLIC PANEL] [CHEM] Stat Lab 10/01/16 14:45 Completed LACTATE, PLASMA [CHEM] Stat Lab 10/01/16 16:40 Completed UA NIMS W/REFLEX CULT [URINALYSIS] Stat Lab 10/01/16 14:04 Completed URINE CULTURE [RM] Routine Lab 10/01/16 18:10 Received URINE MANUAL MICROSCOPIC [URINALYSIS] Stat Lab 10/01/16 14:04 Completed pro-bnp [PRO B-NATRIURETIC PEPTIDE] Stat Lab 10/01/16 14:45 Completed 0.9% Sodium Chloride Inj [Ns] 1,000 ml Med 10/01/16 14:30 Discontinued IV 999 mls/hr Furosemide [Lasix] Med 10/01/16 14:32 Discontinued 60 mg IV NOW ONE Result Diagrams: 10/01/16 14:45 10/01/16 14:45 - REASSESSMENT Reassessment #1 Status: unchanged (family related that they did not want dialysis or any extraordinary measures and wwill consider hospice in penitentiary) - EKG 1 Time of EKG reading by physician:: 14:18 EKG Read and Signed by:: Sandeep Sorto EKG Interpretation (*Must complete 3 of following elements*): Abnormal (Low- voltage QRS. R bundle branch block.) Rate: 103 Rhythm: sinus tachycardia QRS: RBB - XRAY 1 XRAY Study: Chest Impression: Abnormal (FINDINGS: Heart size appears upper normal. There is stable mild elevation right hemidiaphragm. There is stable mild prominence of central vascular markings. There is no dense consolidation, substantial pleural effusion, or pneumothorax identified. IMPRESSION: Stable elevation of right hemidiaphragm and prominence of central vascular markings. No other evidence of acute disease.) XRAY Interpretation: NAD - CHANGE OF SHIFT REPORT (ED Provider) Report Given and Care Transferred to:: Dr. Jorgensen Time of Transfer: 18:04 Departure - Departure Time of Disposition Decision: 18:28 DIAGNOSIS: Hyponatremia, Hyperkalemia, Renal insufficiency syndrome Dementia Qualifiers: Dementia type: unspecified type Dementia behavioral disturbance: without behavioral disturbance Qualified Code(s): F03.90 - Unspecified dementia without behavioral disturbance Leukocytosis Qualifiers: Leukocytosis type: unspecified Qualified Code(s): D72.829 - Elevated white blood cell count, unspecified Disposition: ADMITTED INPATIENT 09 Certified Medical Emergency: Emergent Condition: Stable Referrals and Follow-Ups: Mitch Leal MD [Primary Care Provider] - - Critical Care Note This patient required my direct & personal management of CC.: No Attestation - Physician/ NIEVES Attestation Patient care was provided by Advanced Practice Provider:: No This chart was documented by the indicated scribe, (Ayla Barajas Scribe) and accurately reflects the services I performed and decisions made by me, Sandeep Sorto MD, as attested by the provider's signature.
[2016-10-01] MEDS ORDERED: CALMOSEPTINE OINTMENT TOP PRN (20:03)
[2016-10-01] MEDS ORDERED: SODIUM BICARBONATE 8.4% IV PUSH ONE (21:04)
[2016-10-01] MEDS ORDERED: ZOSYN 2.25 GM/NS 2.25 GM/50 ML IVPB IV ONE (21:06)
[2016-10-01] MEDS ORDERED: DUONEB (A & A) INH PRN (21:09)
--- NOTE | 2016-10-01 21:56 | HISTORY AND PHYSICAL ---
ADMITTING PHYSICIAN: Dr. Riley. ATTENDING PHYSICIAN: Dr. Mitch Leal. SUBJECTIVE: This patient was admitted with mental status change, and just a little over a week ago was discharged on the . She was sent to rehab. She was sent here, sent back to the hospital today, and arrived in the emergency room approximately 1:55. I received a call at 6:04 p.m. to admit the patient. The emergency room physician had scant information as to her condition. I really think he was confused as to who he was talking about. It was explained to me that the patient's family was present and wanted her put in the hospital so that they could start her on hospice. Unfortunately, by the time I arrived later in the evening, there was no family present, and the patient was too demented and delirious to answer any questions about her condition. Most of the historical elements were taken from her last admission. PAST MEDICAL HISTORY: 1. Hypothyroidism. 2. Severe degenerative arthritis. 3. Peptic ulcer disease. 4. History of recurrent UTI. 5. Dementia. ALLERGIES: No known drug allergies. FAMILY HISTORY: Noncontributory. SOCIAL HISTORY: The patient was discharged to rehab approximately 8 days ago. I do not have any of those records available for review at the time of this dictation. REVIEW OF SYSTEMS: The patient is unable to give a reasonable review of systems. I was told by the emergency room doctor that the family did not want dialysis, but I am not very clear on why that was even brought up, given the fact that she has not really had significant renal insufficiency up to this point. The nurse who admitted the patient to the floor noted that she had a severe skin breakdown on her buttocks and rectum in the sacral area, and related to me that the other nurses who had seen the patient during the previous hospitalization said that this was much worse than last time. Unfortunately, there is not really any mention of any type of skin breakdown in either the patient's history and physical, or in her discharge summary, so I have no way to really gauge how long that has been present or what has been done to treat it. During her last hospitalization, the patient had an echocardiogram, which showed severe aortic stenosis and severe mitral stenosis, with pulmonary hypertension. She did have a preserved ejection fraction of 60%. PHYSICAL EXAMINATION: GENERAL: The patient is a well-developed well-nourished white female, who is delirious. Although she opened her eyes very easily, she does not respond meaningfully. She is tachypneic, but not in severe respiratory distress. She has defecated in the bed at the time of my examination. HEENT: The oral mucosa is dry, but not absolutely parched. She is mouth breathing. NECK: There is no JVD in the recumbent position. LUNGS: Generally clear. She does not sound wet. CARDIOVASCULAR: Irregular tachycardia. ABDOMEN: Bowel sounds are present. EXTREMITIES: Do not show any peripheral edema. SKIN: She does have skin tenting in her hands and arms. NEUROLOGIC: Unable to be evaluated. LABORATORY STUDIES: White blood cell count is 32,790. Hematocrit is 30.3. Sodium is 121, potassium 5.8, bicarbonate 18, creatinine 3.1 (baseline 1.6). ProBNP was greater than 35,000. Urinalysis showed a few white cells. ASSESSMENT AND PLAN: 1. The patient is admitted for severe hyponatremia and dehydration. She will be given another bolus of fluids, as well as an amp of bicarbonate since her bicarbonate was so low. This should also help to bolster her sodium a bit. We will place a Zacarias catheter to monitor urine output. 2. The patient's breakdown on her buttocks is severe, and it appears that she has been lying on that over the whole week at the rehab. She may have been sitting on it. Either way, we have made a wound care consult, and will provide supportive measures. Given her high white cell count, there is a high likelihood of systemic infection. I have ordered blood cultures, and started her on Zosyn empirically. We will monitor this and make changes as appropriate. 3. The emergency room physician mentioned to me that the family wanted her no code, level 1, but I do not have any written documentation of this. 4. The patient's cardiovascular status was evaluated thoroughly during her last hospitalization. I do not think we need to revisit that. She had a preserved ejection fraction, and although her proBNP was elevated, this is most likely due to massive dehydration in the face of severe valvular disease. Hopefully, the inclusion of fluids in her regimen will improve her breathing and tachycardia. 5. The patient's acute renal failure is not consistent with her previous numbers , given her hydration status. I think we should see at least some reversal of this over the course of the next 24-48 hours. cc: Nicolas Riley MD MTDD
[2016-10-01] MEDS: PROTONIX IV SCH (22:13)
[2016-10-01] MEDS: SODIUM CHLORIDE 0.9% INJ SCH (22:13)
[2016-10-02 00:59] LABS: URINE SOURCE CATH
[2016-10-02 01:07] LABS: BILIRUBIN URINE NEGATIVE (NEGATIVE); BLOOD URINE MODERATE (NEGATIVE); COLOR YELLOW; GLUCOSE URINE NEGATIVE (NEGATIVE); LEUKOCYTES URINE LARGE (NEGATIVE); NITRITE URINE NEGATIVE (NEGATIVE); PROTEIN URINE 50 mg/dL (NEGATIVE); SP GRAVITY URINE 1.012; TURBIDITY URINE HAZY (CLEAR); UROBILINOGEN URINE NORMAL (NORMAL)
[2016-10-02 01:11] LABS: UR EPITHELIAL CELLS <10 /HPF (<10); URINE BACTERIA 3+ /HPF; URINE CULTURE NEEDED? YES; URINE MICRO REVIEW NEEDED? YES; URINE RBC TNTC /HPF (<10); URINE WBC TNTC /HPF (<10)
[2016-10-02 01:19] LABS: URINE CASTS NONE SEEN
--- NOTE | 2016-10-02 05:24 | EKG Report ---
Test Performed on : 10/01/2016 2:18:46 PM Test Reason : Blood Pressure : / mmHG Vent. Rate : 103 BPM Atrial Rate : 103 BPM P-R Int : 200 ms QRS Dur : 108 ms QT Int : 346 ms P-R-T Axes : 046 113 013 degrees QTc Int : 453 ms Sinus tachycardia. Low voltage QRS Right bundle branch block Abnormal ECG When compared with ECG of 25-AUG-2016 17:20, premature ventricular complexes. are no longer present OR interval has decreased T wave inversion now evident in Inferior leads T wave amplitude has increased in Lateral leads QT has shortened Unconfirmed Result
[2016-10-02] MEDS: SYNTHROID PO SCH ×2 (05:49→06:33)
[2016-10-02] MEDS: NS 1,000 ML IV SCH (12:37)
--- NOTE | 2016-10-02 16:30 | PROGRESS NOTE ---
DATE: 10/02/2016 She had mental status change. Just a little over a week ago discharged on the , sent to rehab, sent back to the hospital. Arrived in the emergency room at 1:55. Received a call at 6:04. Patient has scanty information on her condition as she was confused and explained to me the patient's family is present and wanted her in the hospital so they can start hospice. Unfortunately by they arrived in the evening, there was no family present. PAST MEDICAL HISTORY: 1. Hypothyroidism. 2. Severe degenerative arthritis. 3. Peptic ulcer disease. 4. History of recurring UTIs. 5. Dementia. The patient is on arrival found to have severe hyponatremia, dehydration, given some fluids. Given an amp of bicarb. Patient also had skin breakdown on the buttocks and sacral area and so started empirically on some Zosyn. Family wanted him no code level 1. Cardiovascular status was revisited. She had preserved ejection fraction although her proBNP was elevated so she does have history of diastolic dysfunction. The patient also in acute renal failure. Zacarias catheter was placed. EXAM: Today temp 98.5 degrees, pulse 100, respirations 22, blood pressure 65/33.Lungs: Clear in all lung johnson. Cardiovascular: Regular rate without murmur or S3. Abdomen: Soft. Skin: Warm and dry. Good urine output. White count 56778, hematocrit 30, platelet count 425,000. Chemistry showed sodium 121, potassium 5.8, chloride 90, bicarb 18, BUN 92, creatinine 3.1. ASSESSMENT/PLAN: 1. Altered mental status, hyponatremia, hyperkalemia mild, renal insufficiency. Continue fluids for now. Zacarias catheter in place. 2. Sacral breakdown. Continue Zosyn. Present fluids running at 125 mL an hour. We will continue that. She is on Synthroid. Check T4 and TSH. Check electrolytes. She is off of any medication that could be contributing to the confusion. Has a history of diastolic dysfunction, acute kidney injury. cc: Mitch Leal MD
[2016-10-02] MEDS: TYLENOL PO PRN (17:31)
[2016-10-02] MEDS: PROTONIX IV SCH ×2 (19:38→21:26)
[2016-10-02 21:01] LABS: BASO% 0.1 % (0.0-0.8); EOS# 0.04 X1000 (0.0-0.7); EOS% 0.1 % (0.0-10.0); HEMATOCRIT 27.9 % (37.0-47.0); HEMOGLOBIN 8.8 g/dL (12.0-16.0); IMM GRAN# 0.28 X1000 (0.0-0.04); IMM GRAN% 0.7 % (0.0-0.5); LYMPH# 0.96 X1000 (1.2-3.4); LYMPH% 2.3 % (20.5-51.1); MCH 28.2 PG (27-31); MCHC 31.5 g/dL (33-37); MCV 89.4 FL (81-99); MONO# 1.36 X1000 (0.11-0.59); MONO% 3.3 % (1.7-9.3); MPV 10.7 FL (7.4-10.4); NEUT% 93.5 % (42.2-75.2); PLT 386 X1000 (130-400); RBC 3.12 XMIL (4.2-5.4)
[2016-10-02 21:09] LABS: MANUAL DIFF NEEDED? NO
[2016-10-02 21:23] LABS: CALCIUM 8.5 mg/dL (8.8-10.2); POTASSIUM 5.3 mmol/L (3.5-5.1); TOTAL BILIRUBIN 0.21 mg/dL (0.20-1.00); TOTAL PROTEIN 4.8 g/dL (6.3-8.3)
[2016-10-02] MEDS: SODIUM CHLORIDE 0.9% INJ SCH (21:26)
[2016-10-03] MEDS: SYNTHROID PO SCH (06:52)
[2016-10-03 06:56] LABS: ALBUMIN 2.2 g/dL (3.5-5.0); CALCIUM 8.7 mg/dL (8.8-10.2); POTASSIUM 5.5 mmol/L (3.5-5.1); TOTAL BILIRUBIN 0.21 mg/dL (0.20-1.00); TOTAL PROTEIN 5.6 g/dL (6.3-8.3)
[2016-10-03 07:20] LABS: FREE T4 1.17 ng/dL (0.93-1.70)
[2016-10-03] MEDS: NS 1,000 ML IV SCH ×3 (10:00→21:20)
[2016-10-03] MEDS: TYLENOL PO PRN (11:35)
--- NOTE | 2016-10-03 11:35 | PROGRESS NOTE ---
DATE: 10/03/2016 She was uncovered in the bed, complains she was cold. She asked me "what brought me here." She is awake and alert. Oriented to person, not sure she knows she is in the hospital.Vital signs: Temperature 97.2 degrees. She has remained afebrile. Pulse 82, respirations 14. Lungs: Clear in all lung johnson. Cardiovascular: Regular rhythm and rate without murmur or S3. Abdomen: Soft. Skin: Is warm and dry. Good urine output over a L. LAB: White count 07798, hematocrit 27, platelet count 386,000, predominantly neutrophils. Chemistry: Sodium 131, potassium 5.5, chloride 99, bicarb 14, BUN 98, creatinine 2.9, albumin 2.2. ASSESSMENT AND PLAN: 1. Altered mental status. Multifactorial, hyponatremia is mild and stable, acute kidney injury with an acidosis and anion gap slightly elevated but the lactate level is 1.2. Continue present fluids. I think I will turn them down to 85 mL an hour. 2. Note that echocardiogram done on 09/11/2016, severe mild mitral annular calcification with thick and restricting movement of the mitral valve leaflets. She may have significant mitral stenosis. Aortic valves are calcified, trileaflet. Pulmonary valve was normal. There is a trivial pulmonary regurgitation. Doppler studies across the aortic valve suggest severe aortic stenosis. So she has severe aortic stenosis and possibly mitral stenosis as well. Continue to give her some fluids at this point. 3. Degenerative osteoarthritis, stable. 4. History of peptic ulcer disease. 5. Dementia with delirium and confusion. Chest x-ray from the 18th, stable elevation of right hemidiaphragm, prominence of central vascular markings but no evidence of acute disease. 6. Sacral decubitus, sacral skin breakdown. We need to treat this shifting her weight and topical treatment. We do have wound care involved. 7. Primary hypothyroidism, at the present time appears to be euthyroid. She is on Protonix 40 mg IV q.24 hours. She is on Synthroid 125 mcg daily. Will run normal saline at 85 mL an hour. cc: Mitch Leal MD
[2016-10-03] MEDS: PROTONIX IV SCH (20:36)
[2016-10-03] MEDS ORDERED: CORTEF PO ONE (23:35)
[2016-10-04] MEDS: SYNTHROID PO SCH (06:13)
[2016-10-04 06:57] LABS: CALCIUM 8.7 mg/dL (8.8-10.2); POTASSIUM 5.3 mmol/L (3.5-5.1)
[2016-10-04] MEDS: CORTEF PO SCH ×2 (08:26→20:01)
[2016-10-04] MEDS ORDERED: NS 1,000 ML IV SCH (13:00)
[2016-10-04] MEDS: TYLENOL PO PRN (16:30)
--- NOTE | 2016-10-04 16:31 | PROGRESS NOTE ---
DATE: 10/04/2016 SUBJECTIVE: Ms. Machuca says she is not hurting anywhere. Breathing was about the same by report. OBJECTIVE: Vital signs: She has remained afebrile. Temperature 98.4 degrees, pulse 87, respirations 20, blood pressure 79/46. General: She pulled out her IV again yesterday. She had her gown off and covers off. Lungs: Clear in all lung johnson. Cardiovascular: Regular rhythm and rate without murmur or S3. CVP less than 6 cm. There is a 4/6 systolic ejection murmur at the left sternal border, radiates up to the carotids. Also a diastolic rumble consistent with mitral stenosis. LABS: From this morning serum creatinine was 3.1, so that has gone up. Potassium 5.3, chloride 99, blood sugar 86. On the her white count was 41,460, hematocrit 27, platelet count 386,000. Echocardiogram showed severe mitral annular calcification with thick, restricting movement of the mitral valve leaflets. I suspect moderate to possibly severe mitral stenosis and significant aortic valve stenosis which is severe. ASSESSMENT: 1. Altered mental status, multifactorial, renal dysfunction, severe aortic stenosis, probably at least moderate to severe, mitral stenosis, underlying dementia, and she has an elevated white count as well. 2. Degenerative arthritis. 3. Acute kidney injury on top of chronic kidney disease, seems to be worsening. 4. Peptic ulcer disease. 5. Sacral decubitus. Continue topical work PLAN: Family has made her a no code. They want to pursue comfort measures. I am not sure that renal function is going to improve in this setting. I am going to decrease the fluids, change the saline lock and if the IV comes out we will take it. She is eating and we will see if we can get started getting her up out of bed some. We still have her on some Solu-Cortef 20 mg b.i.d. The elevated white count could possibly also be a bone marrow dysfunction. Will recheck her CBC and electrolytes and follow that. cc: Mitch Leal MD
[2016-10-04] MEDS: PROTONIX IV SCH ×2 (20:01→21:53)
[2016-10-05] MEDS: SYNTHROID PO SCH ×2 (05:36→06:01)
[2016-10-05 07:54] LABS: CALCIUM 8.6 mg/dL (8.8-10.2); POTASSIUM 5.6 mmol/L (3.5-5.1)
[2016-10-05] MEDS: CORTEF PO SCH ×2 (08:09→20:05)
--- NOTE | 2016-10-05 13:08 | PROGRESS NOTE ---
DATE: 10/05/2016 OBJECTIVE: Vital signs: Remains afebrile, temp 97.6 degrees, pulse 80, respirations 16, blood pressure 110/64. HEENT: Pupils are equal and round. Lungs: Clear in all lung johnson. Cardiovascular: Regular rhythm and rate without murmur or S3. Abdomen: Soft. Skin: Warm and dry. Decubitus ulcer looks a little better. Skin seems to be healing. General: She is more awake and alert. Extremities: Does have trace edema in ankles to the knees. LAB: Labs reviewed from the . Rechecked electrolytes this morning. Sodium 131, potassium 5.6, chloride 98, creatinine is stable at 3.2. ASSESSMENT AND PLAN: 1. Severe aortic stenosis and suspect at least moderate mitral stenosis. Blood pressure and pulse are doing a little better. 2. Acute on chronic renal insufficiency. Creatinine at 3.2. We have fluids to keep vein open at present. Encourage p.o. intake. 3. Degenerative osteoarthritis mainly in her hands but back, knees, and hips. 4. History of peptic ulcer disease. 5. Sacral decubitus with skin breakdown which is improving with topical care. 6. Dementia with confusion and delirium. Seems to be a little more alert we will get physical therapy to work on her strength and range of motion. They have asked for hospice consult so I am not sure if physical therapy is even a viable opportunity for us. cc: Mitch Leal MD
[2016-10-05] MEDS: PROTONIX IV SCH ×2 (20:06→22:11)
[2016-10-05] MEDS: SODIUM CHLORIDE 0.9% INJ SCH (20:07)
[2016-10-06] MEDS ORDERED: BLISTEX MEDICATED BERRY LIP BALM TOP ONE (00:17)
[2016-10-06] MEDS: SYNTHROID PO SCH ×2 (05:17→06:16)
[2016-10-06 06:51] LABS: CALCIUM 8.4 mg/dL (8.8-10.2); POTASSIUM 4.8 mmol/L (3.5-5.1)
[2016-10-06] MEDS: CORTEF PO SCH ×2 (08:35→23:57)
--- NOTE | 2016-10-06 12:44 | PROGRESS NOTE ---
DATE: 10/06/2016 SUBJECTIVE: Ms. Machuca is awake. She was eating breakfast. Looked much more comfortable. Denied any pain. Breathing comfortably. OBJECTIVE: Vital Signs: Remains afebrile. Pulse 104, respirations 16, and blood pressure has been between 74 and 79 systolic, 37-97 diastolic. Lungs: Clear in all lung johnson. Cardiovascular: Regular rhythm and rate, without murmur or S3. Abdomen: Soft. Skin: Warm and dry. LABORATORY: No new laboratory today, but note that she has leukocytosis, so will recheck that. Her serum creatinine is coming down to 2.8, which is encouraging. Sodium 131, potassium 4.8, chloride 100, BUN 94, and creatinine 2.8. ASSESSMENT AND PLAN: 1. Severe aortic stenosis. Suspect at least moderate to severe mitral stenosis. Blood pressure running in the 80s and 90s systolic. 2. Acute on chronic renal failure. Creatinine is coming down a little bit, which is encouraging. 3. Degenerative arthritis in her hands, knees, and hips, and it is fairly stable. 4. History of peptic ulcer disease. 5. Sacral decubitus. Her breakdown skin seems to be improving with topical care. 6. Dementia, confusion and delirium. Seems to be a little more alert, a little more present and aware of her surroundings. REVIEW OF HER ORDERS: Still on Protonix 40 mg IV q.24 hours. She is on Synthroid 125 mcg p.o. daily. She is getting Cortef 20 mg b.i.d. She is eating much better. We will check electrolytes, CBC, and magnesium again in the morning, and see if her leukocytosis is still elevated. I do not see any source of bacterial infection. At this point, she is not on any antibiotics. cc: Mitch Leal MD
[2016-10-06] MEDS: FLAGYL PO SCH ×2 (13:32→17:32)
[2016-10-06] MEDS: SODIUM CHLORIDE 0.9% INJ SCH (23:56)
[2016-10-06] MEDS: PROTONIX IV SCH (23:57)
[2016-10-07 06:01] LABS: EOS# 0.17 X1000 (0.0-0.7); EOS% 0.6 % (0.0-10.0); HEMATOCRIT 29.1 % (37.0-47.0); HEMOGLOBIN 9.2 g/dL (12.0-16.0); IMM GRAN# 0.22 X1000 (0.0-0.04); IMM GRAN% 0.8 % (0.0-0.5); LYMPH# 0.74 X1000 (1.2-3.4); LYMPH% 2.8 % (20.5-51.1); MANUAL DIFF NEEDED? YES; MCH 27.8 PG (27-31); MCHC 31.6 g/dL (33-37); MCV 87.9 FL (81-99); MONO# 1.07 X1000 (0.11-0.59); MONO% 4.1 % (1.7-9.3); MPV 9.7 FL (7.4-10.4); NEUT% 91.7 % (42.2-75.2); PLT 307 X1000 (130-400); RBC 3.31 XMIL (4.2-5.4)
[2016-10-07 06:05] LABS: LYMPHS 4 % (21-51); MONO 4 % (1-9)
[2016-10-07 06:10] LABS: ALBUMIN 2.4 g/dL (3.5-5.0); CALCIUM 8.1 mg/dL (8.8-10.2); MAGNESIUM 1.9 mg/dL (1.5-2.7); POTASSIUM 4.6 mmol/L (3.5-5.1); TOTAL BILIRUBIN 0.13 mg/dL (0.20-1.00); TOTAL PROTEIN 5.2 g/dL (6.3-8.3)
[2016-10-07] MEDS: SYNTHROID PO SCH (06:30)
[2016-10-07] MEDS: CORTEF PO SCH ×2 (09:12→21:04)
[2016-10-07] MEDS: FLAGYL PO SCH ×3 (09:12→17:30)
[2016-10-07] MEDS: TYLENOL PO PRN (09:15)
[2016-10-07] MEDS: SODIUM CHLORIDE 0.9% INJ SCH (21:04)
[2016-10-07] MEDS: PROTONIX IV SCH (21:04)
[2016-10-08] MEDS: SYNTHROID PO SCH (06:29)
[2016-10-08 06:38] LABS: CALCIUM 8.1 mg/dL (8.8-10.2); POTASSIUM 4.4 mmol/L (3.5-5.1)
[2016-10-08] MEDS: PROTONIX IV SCH ×2 (07:06→21:44)
--- NOTE | 2016-10-08 09:05 | PROGRESS NOTE ---
DATE: 10/08/2016 SUBJECTIVE: Ms. Machuca is awake. She appears comfortable. She is aware of who she is. I am not sure she remembers she is in the hospital. PHYSICAL EXAMINATION: Vital Signs: Afebrile, temperature 97.3 degrees, pulse 90, respirations 16, blood pressure 88/52. Lungs: Clear in all lung johnson. Cardiovascular Examination: Regular rhythm and rate without murmur or S3. Abdomen: Soft. Skin: Warm and dry. LAB: Reviewed. ASSESSMENT AND PLAN: 1. Severe aortic stenosis. I suspect at least moderate mitral stenosis. Blood pressures are stable at 88-95/52. 2. Dementia. More awake and more alert. She is very cooperative. 3. Acute on chronic renal insufficiency. Her blood work, creatinine is coming down, 2.4 which is encouraging. 4. Sacral skin breakdown which I think has improved with topical care. 5. General weakness, deconditioning. Continue physical therapy. 6. Osteoarthritis. cc: Mitch Leal MD
[2016-10-08] MEDS: CORTEF PO SCH ×2 (09:40→21:44)
[2016-10-08] MEDS: FLAGYL PO SCH ×3 (09:40→17:49)
[2016-10-09 06:29] LABS: CALCIUM 8.1 mg/dL (8.8-10.2); MAGNESIUM 1.8 mg/dL (1.5-2.7); POTASSIUM 4.5 mmol/L (3.5-5.1)
[2016-10-09] MEDS: SYNTHROID PO SCH (06:49)
[2016-10-09] MEDS: CORTEF PO SCH ×2 (08:14→21:43)
[2016-10-09] MEDS: FLAGYL PO SCH ×3 (08:15→19:04)
--- NOTE | 2016-10-09 15:02 | PROGRESS NOTE ---
DATE: 10/09/2016 SUBJECTIVE: Ms. Machuca is not eating as well today. She is awake and alert, but she does want to sleep. No sign of discomfort or stress. I looked at her sacral skin and it looks like it's healing. She still has leakage of soft brown stool in the diaper. I may add some Questran or something to try and help this. OBJECTIVE: Vital Signs: Temperature 97.1, pulse 90, respirations 12, blood pressure of 73/32. Eyes: Pupils are equal, round. Lungs: Are clear in all lung johnson. Cardiovascular: Exam regular rhythm and rate without murmur or S3. Abdomen: Soft. Skin: Warm and dry. LAB: White count from the 24th was at 26, will repeat that again tomorrow. Hematocrit is stable at 29. Electrolytes look okay. Serum creatinine 2.4, which has come down from 3.2. Sodium 135, potassium 4.5, chloride 103, bicarb 15. ASSESSMENT AND PLAN: 1. Severe aortic stenosis. Suspect at least moderate mitral stenosis. Blood pressures systolic running in the 80s to 90s. 2. Dementia. She is very cooperative and seems to be pleasant. 3. Acute on chronic renal insufficiency. Renal function I think is improving. Her IV has come out. She pulls her IVs out. We are going to keep it out and encourage p.o. intake. 4. Sacral skin breakdown. Continue topical care. 5. General weakness and deconditioning, osteoarthritis. We have her trying to get physical therapy, but I am not sure how much progress we are going to make. Review of her orders. I do not see any changes. cc: Mitch Leal MD
[2016-10-09] MEDS: PROTONIX IV SCH (21:43)
[2016-10-10] MEDS: SYNTHROID PO SCH (06:29)
[2016-10-10] MEDS: FLAGYL PO SCH ×3 (08:25→18:09)
[2016-10-10] MEDS: CORTEF PO SCH ×2 (08:25→22:33)
--- NOTE | 2016-10-10 10:18 | PROGRESS NOTE ---
DATE: 10/10/2016 SUBJECTIVE: She is more awake, alert, and more oriented. She is not complaining of any pain at this time. She is oriented times person. I think she knows she is in the hospital. OBJECTIVE: She is afebrile. Pulse 97, respirations 18, blood pressure 94/56. Lungs are clear in all lung johnson. Cardiovascular: Regular rhythm and rate without murmur or S3. Abdomen soft. Skin is warm and dry. The sacral skin is improving. Still some soft stool. ASSESSMENT AND PLAN: 1. Severe aortic stenosis, at least moderate mitral stenosis. 2. Underlying dementia. 3. [id number] renal insufficiency. Renal function is improving. Creatinine down to 2.4. 4. Osteoarthritis. Continue physical therapy. 5. General weakness and deconditioning. Encouraged p.o. intake. I am going to try and give her a little bit of Questran to see if it will help the stools form a little better. She is on Flagyl 250 mg t.i.d. Her Clostridium antigen and toxin were positive back on 10/01/2016. cc: Mitch Leal MD
[2016-10-10] MEDS: TYLENOL PO PRN (18:09)
[2016-10-10] MEDS: PROTONIX IV SCH (22:34)
[2016-10-11] MEDS: SYNTHROID PO SCH (07:38)
[2016-10-11] MEDS: FLAGYL PO SCH ×3 (10:30→17:52)
[2016-10-11] MEDS: CORTEF PO SCH ×2 (10:30→21:19)
[2016-10-11] MEDS: QUESTRAN LIGHT PO SCH (10:30)
--- NOTE | 2016-10-11 11:09 | PROGRESS NOTE ---
DATE: 10/11/2016 SUBJECTIVE: Ms. Machuca is awake and alert. She is oriented to person only. I explained that she is in the hospital. I reminded her what month and the year was. She appears comfortable, breathing comfortably. PHYSICAL EXAMINATION: Vital Signs: Temperature 97.2 degrees, pulse 98, respirations 14, blood pressure 96/50. Lungs: Are clear in all lung johnson. Cardiovascular Examination: Regular rhythm and rate without murmur or S3. Abdomen: Soft. Skin: Is warm and dry. LAB: Electrolytes unremarkable. White count has come down at 26,270, hematocrit 29, platelet count 307,000. ASSESSMENT AND PLAN: 1. Severe aortic stenosis, moderate to severe mitral stenosis. 2. Underlying dementia. 3. Acute on chronic renal insufficiency. Serum creatinine has leveled off about 2.4 but doing better as far as her mental status. 4. Sacral decubitus which is improving. 5. Recent treatment for Clostridium difficile diarrhea. 6. Continue physical therapy, continue topical care of the sacral decubitus. Hope to get her to a intermediate Wednesday or Wednesday. cc: Mitch Leal MD
[2016-10-11] MEDS: TYLENOL PO PRN (17:52)
[2016-10-11] MEDS: PROTONIX IV SCH (21:19)
[2016-10-12] MEDS: SYNTHROID PO SCH ×2 (05:33→07:56)
[2016-10-12] MEDS: FLAGYL PO SCH ×3 (10:17→20:35)
[2016-10-12] MEDS: CORTEF PO SCH ×2 (10:17→20:35)
[2016-10-12] MEDS: QUESTRAN LIGHT PO SCH (10:18)
[2016-10-12] MEDS ORDERED: ZOFRAN PO PRN (13:48)
--- NOTE | 2016-10-12 13:49 | PROGRESS NOTE ---
DATE: 10/12/2016 SUBJECTIVE: Ms. Machuca-was resting comfortably. Easy to arouse. She is oriented to person, and I think she does remember she is in the hospital, today. OBJECTIVE: Vital Signs: Afebrile. Temperature 97.6 degrees, pulse 90, respirations 16, blood pressure 84/49. HEENT: Pupils are equal, round, CVP less than 6 cm. Lungs: Clear in all lung johnson. Cardiovascular: Regular rhythm and rate without murmur or S3. Abdomen: Soft. Skin: Warm and dry. LABORATORY: From the , creatinine stable at 2.4. We will check it again in the morning. Sacral decubitus improving. ASSESSMENT AND PLAN: 1. Severe aortic stenosis. Moderate to severe mitral stenosis. 2. Underlying dementia. 3. Acute on chronic renal insufficiency. Creatinine steadily improving. We will check again tomorrow, creatinine electrolytes. 4. Sacral decubitus improving. 5. Treatment of Clostridium difficile diarrhea. Still some loose stool. 6. General weakness and deconditioning. Continue physical therapy as we can. We will look for skilled nursing placement. I think she will be ready soon. She still on the Flagyl 250 mg t.i.d. I will discontinue the Protonix, still on Solu-Cortef 20 mg b.i.d. and I have her on cholestyramine to help with the stools. cc: Mitch Leal MD
[2016-10-12] MEDS: PROTONIX IV SCH ×2 (20:35→20:38)
[2016-10-12] MEDS: SODIUM CHLORIDE 0.9% INJ SCH (20:35)
[2016-10-12] MEDS: TYLENOL PO PRN (20:42)
[2016-10-13] MEDS: SYNTHROID PO SCH (06:50)
[2016-10-13 07:18] LABS: CALCIUM 8.4 mg/dL (8.8-10.2); POTASSIUM 4.5 mmol/L (3.5-5.1)
--- NOTE | 2016-10-13 07:26 | Diag Imaging Result Doc PS360 ---
EXAM: CHEST-PORTABLE HISTORY: pneumonia TECHNIQUE: AP upright portable chest at 0630 COMMENT: The inspiration is less optimal than on 10/01/2016. There is some apparent retrocardiac opacity in the left lower lobe as well as in the right lower lobe. IMPRESSION: Bibasilar atelectasis versus pneumonia. Electronically signed by Wojciech Gutierrez 10/13/2016 7:23 AM
--- NOTE | 2016-10-13 09:06 | PROGRESS NOTE ---
DATE: 10/13/2016 SUBJECTIVE: She was awake and alert. She is eating some of her breakfast and she is oriented to person, knows she is in the hospital and answers questions appropriately. Remained afebrile.Vital signs: Temperature 97.3 degrees, pulse 80, respirations 17, blood pressure 89/39. HEENT: Pupils are equal, round. Lungs: Are clear in all lung johnson. Cardiovascular: Regular rhythm and rate without murmur or S3. Abdomen: Soft. Skin: Warm and dry. LABORATORY: Sodium 134, potassium 4.5, chloride 102, bicarb 16, BUN 72, creatinine 2.0 which is improving. Chest x-ray from today bibasilar atelectasis. ASSESSMENT AND PLAN: 1. Severe aortic stenosis. Moderate to severe mitral stenosis. 2. Underlying dementia. She is cooperative and pleasant. 3. Acute on chronic renal insufficiency. This is improving. It is encouraging. Creatinine down at 2 and eating and drinking better. 4. Sacral decubitus. The sacral skin irritation and perirectal irritation; this is improving. 5. Clostridium difficile diarrhea which we still have her on Flagyl. Stools are still loose. I have added Questran and I will probably give her Questran twice a day. 6. General deconditioning and weakness. I would like to get her ready to go to rehab and then to the [facility]. We will get her ready to go to a [facility]. cc: Mitch Leal MD
[2016-10-13] MEDS: CORTEF PO SCH ×2 (09:47→22:13)
[2016-10-13] MEDS: QUESTRAN LIGHT PO SCH ×2 (09:50→22:14)
[2016-10-13] MEDS: FLAGYL PO SCH ×3 (09:50→18:15)
[2016-10-13] MEDS ORDERED: FLAGYL ONE (12:35)
[2016-10-13] MEDS: PROTONIX IV SCH (22:15)
[2016-10-14] MEDS: SYNTHROID PO SCH (06:25)
[2016-10-14] MEDS: FLAGYL PO SCH ×3 (08:07→20:50)
[2016-10-14] MEDS: QUESTRAN LIGHT PO SCH (08:07)
[2016-10-14] MEDS: CORTEF PO SCH ×2 (08:07→20:50)
--- NOTE | 2016-10-14 09:56 | PROGRESS NOTE ---
DATE: 10/14/2016 SUBJECTIVE: Ms. Machuca is awaken and she appears comfortable. Apparently, stools have started forming. PHYSICAL EXAMINATION: Vital Signs: Her temperature is 97.3 degrees, pulse 90, respirations 17, blood pressure 84/41. HEENT: Pupils are equal and round. Lungs: Are clear in all lung johnson. Cardiovascular Examination: Regular rhythm and rate without murmur or S3. Abdomen: Soft. Skin: Is warm and dry. The sacral and perirectal skin is healing. LABORATORY DATA: Her white count has come down at 26,270, platelet count 307,000, predominantly these are neutrophils. Chemistry: Sodium 134, potassium 4.5, chloride 102, BUN 72, creatinine 2. Renal function continues to improve. ASSESSMENT AND PLAN: 1. Bibasilar atelectasis versus pneumonia on x-ray but really no clinical signs of pneumonia. Encouraged her to breathe deeply. 2. Clostridium difficile which is improving and stools are forming. I think I can back down on the Questran to once a day. 3. Severe aortic stenosis, moderate to severe mitral stenosis. 4. General weakness and deconditioning. Continue to encourage physical therapy. 5. Chronic kidney disease, acute on chronic. Renal function seems to be improving. 6. I think she is close to being able to go to a longterm. I am not sure what the plans are. I think the plan was to try and get her back to [facility] with hospice care. cc: Mitch Leal MD
--- NOTE | 2016-10-14 16:17 | DISCHARGE SUMMARY ---
ADMISSION DATE: 10/01/2016 DISCHARGE DATE: 10/15/2016 HISTORY AND HOSPITAL COURSE: She was admitted with a mental status change a little over a week. Discharge from this hospital on the 22 of September, sent to rehab, and came back to the hospital today. She did have a sacral and perirectal skin ulceration, decubitus, and she has been having loose stools. She was positive for C. difficile. She was very lethargic and remained lethargic for several days. Renal function with significant azotemia, creatinine above 3. She appeared to be intravascularly dry. She has known severe aortic stenosis and moderate to severe mitral stenosis and progressed dementia, history of peptic ulcer disease, severe degenerative arthritis, hypothyroidism, and history of UTIs in the past. Eventually she seemed to arouse. Her white count was elevated when she came in, 32,000, and went up to 41,000 the 02 of October. We checked it on the and it was 26,000, predominantly neutrophils. I am not sure if this represents bone marrow dysplasia. Her electrolytes improved. Serum creatinine came down from 3.2 to 2.0. Stool started to form. I did put her on some Questran and I kept her on Flagyl. She did eat a little bit and was cooperative and we tried to initiate some physical therapy. Family would like her to go back [facility] and ask hospice to evaluate for comfort care, so we will make plans to do that on 10/15/2016. DISCHARGE MEDICATION: She can have Tylenol p.r.n., DuoNeb as needed. I have her on Questran Light 1 g or 1 scoop daily. She was getting Solu-Cortef for possible adrenal insufficiency and I will probably leave her on prednisone at 15 mg in the morning and 10 in the evening, Synthroid 125 mcg p.o. daily, Flagyl 500 mg p.o. t.i.d., which I will probably continue for another 10 days, Protonix 40 mg once a day. She is not on any pain medication. Continue topical care for sacral decubitus. cc: Mitch Leal MD
[2016-10-15] MEDS: PROTONIX IV SCH (01:14)
[2016-10-15 06:14] LABS: BASO% 0.1 % (0.0-0.8); EOS# 0.11 X1000 (0.0-0.7); EOS% 0.6 % (0.0-10.0); HEMATOCRIT 31.6 % (37.0-47.0); HEMOGLOBIN 10.1 g/dL (12.0-16.0); IMM GRAN# 0.07 X1000 (0.0-0.04); IMM GRAN% 0.4 % (0.0-0.5); LYMPH# 0.64 X1000 (1.2-3.4); LYMPH% 3.3 % (20.5-51.1); MANUAL DIFF NEEDED? YES; MCV 87.5 FL (81-99); MONO# 0.84 X1000 (0.11-0.59); MONO% 4.3 % (1.7-9.3); MPV 10.5 FL (7.4-10.4); NEUT% 91.3 % (42.2-75.2); PLT 189 X1000 (130-400); RBC 3.61 XMIL (4.2-5.4)
[2016-10-15 06:35] LABS: LYMPHS 2 % (21-51); MONO 1 % (1-9)
[2016-10-15 06:38] LABS: CALCIUM 8.5 mg/dL (8.8-10.2); POTASSIUM 4.4 mmol/L (3.5-5.1)
[2016-10-15 08:26] VITALS: BP 104/53
[2016-10-15] MEDS ORDERED: QUESTRAN LIGHT PO SCH (09:00)
[2016-10-15] MEDS: SYNTHROID PO SCH (09:37)
[2016-10-15] MEDS: FLAGYL PO SCH (09:38)
[2016-10-15] MEDS: CORTEF PO SCH (09:38)
--- NOTE | 2016-10-15 11:30 | PROGRESS NOTE ---
DATE: 10/15/2016 ADDENDUM: She is awake and alert the day of discharge, feels better. She does state her mouth is dry. She ate a little bit of her breakfast. Pleased that her white count came down to 19,570. Hematocrit is up at 31. Platelet count 189,000. Chemistries: Creatinine is down to 1.8, so it continues to drop. Electrolytes look good. On review of her discharge medications, the patient is getting Calmoseptine ointment on her sacral area regularly. She is on Questran Light 1 scoop 4 grams daily, Cortef 20 mg oral twice a day, Flagyl 500 mg t.i.d. for another 10 days, Protonix 40 mg a day, QVAR 80 mcg inhaler 1 puff twice a day, levothyroxine 125 mcg a day, albuterol/ipratropium breathing treatment as needed, Tylenol she can take 650 every 6 hours p.r.n., pantoprazole 40 mg a day. We stopped the Tessalon Perles, we stopped the Lasix, we stopped the Antivert, stopped the trazodone. DISPOSITION: Plan on sending her to [facility] today, 10/15/2016. cc: Mitch Leal MD
== END 2016-10-15 10:45 ==
LOC: ED 13:55 → 4N 18:58 → 3N 10-12 17:20
PROVIDERS: ADMIT Emergency Medicine; ATTEND Emergency Medicine